=== PATIENT | female | born 1990 | race African-American/Black ===

== ENCOUNTER 2020-11-30 12:37 | Outpatient (REF) | payer OTHER, SELFPAY ==
[2020-11-30 14:44] LABS: Hematocrit 42.3 % (37-47); Hemoglobin 14.2 g/dl (12.0-16.0); Mean Corpuscular HGB Conc 33.6 g/dl (31.0-35.0); Mean Corpuscular Hemoglobin 31.7 pg (27.0-33.0); Mean Corpuscular Volume 94.4 fL (80-98); Mean Platelet Volume 10.3 fL (9.4-12.3); Platelet Count 224 X10*3/uL (160-400); Red Blood Count 4.48 X10*6/uL (4.20-5.50); White Blood Count 9.3 X10*3/uL (4.8-10.8)
[2020-11-30 15:12] LABS: Alanine Aminotransferase 16 U/L (0-31); Alkaline Phosphatase 57 U/L (39-117); Anion Gap 16 (12-20); Aspartate Amino Transferase 18 U/L (5-31); Bilirubin Direct 0.2 mg/dL (0.0-0.5); Bilirubin Total 0.6 mg/dL (0.0-1.0); Blood Urea Nitrogen 17 mg/dL (9-16); Calcium 8.7 mg/dL (8.4-10.2); Carbon Dioxide 23 mmol/L (22-29); Chloride 105 mmol/L (96-108); Cholesterol 148 mg/dL; Creatinine Clr Calc Pharmacy 100.9; Estimated Glomerular Filt Rate > 60; Glucose Random 99 mg/dL (60-115); HDL Cholesterol 63 mg/dL; LDL Cholesterol Calculated 68 mg/dl; Potassium 4.3 mmol/l (3.3-5.1); Sodium 140 mmol/L (135-145); Triglycerides 86 mg/dL
[2020-11-30 15:25] LABS: TSH reflex Free T4 1.33 mIU/mL (0.32-4.0)
[2020-12-01 09:12] LABS: BV Int Neg Control Negative (Negative); BV Int Pos Control Positive (Positive)
[2020-12-01 21:32] LABS: C. trachomatis RNA TMA NOT DETECTED (NOT DETECTED); N. gonorrhoeae RNA TMA NOT DETECTED (NOT DETECTED)
== END 2020-11-30 12:38 | disposition home or self-care (01) ==
LOC: HO.LAB 12:37
PROVIDERS: Hospitalist; Visit Provider Advanced Practice Midwife
DX: Z01.419 Encounter for gynecological examination (general) (routine) without abnormal findings (principal); N89.8 Other specified noninflammatory disorders of vagina
CPT/HCPCS: 36415; 80048; 80061; 80076; 84443; 85027; 87480; 87491; 87510; 87591; 87660

== ENCOUNTER 2021-04-28 12:15 | Outpatient (REF) | payer OTHER, SELFPAY ==
[2021-04-28 14:31] LABS: Hematocrit 40.6 % (37-47); Hemoglobin 13.3 g/dl (12.0-16.0); Mean Corpuscular HGB Conc 32.8 g/dl (31.0-35.0); Mean Corpuscular Hemoglobin 30.5 pg (27.0-33.0); Mean Corpuscular Volume 93.1 fL (80-98); Mean Platelet Volume 10.2 fL (9.4-12.3); Platelet Count 260 X10*3/uL (160-400); Red Blood Count 4.36 X10*6/uL (4.20-5.50); Red Cell Distribution Width 12.2 % (11.0-16.0); White Blood Count 9.6 X10*3/uL (4.8-10.8)
[2021-04-28 15:01] LABS: Alanine Aminotransferase 12 U/L (0-31); Albumin Level 4.1 g/dL (3.5-5.0); Alkaline Phosphatase 49 U/L (39-117); Anion Gap 13 (12-20); Aspartate Amino Transferase 16 U/L (5-31); Bilirubin Direct 0.4 mg/dL (0.0-0.5); Blood Urea Nitrogen 17 mg/dL (9-16); Calcium 9.1 mg/dL (8.4-10.2); Carbon Dioxide 25 mmol/L (22-29); Chloride 105 mmol/L (96-108); Estimated Glomerular Filt Rate > 60; Glucose Random 84 mg/dL (60-115); Potassium 4.1 mmol/L (3.3-5.1); Sodium 139 mmol/L (135-145); Total Protein 6.8 g/dL (6.5-8.0)
== END 2021-04-28 12:16 | disposition home or self-care (01) ==
LOC: HO.WFDLDS 12:15
PROVIDERS: PCP Hospitalist; Visit Provider Hospitalist
DX: Z00.00 Encounter for general adult medical examination without abnormal findings (principal); B36.0 Pityriasis versicolor
CPT/HCPCS: 36415; 80048; 80076; 85027

== ENCOUNTER 2021-08-07 14:42 | Emergency (ER) | payer OTHER, SELFPAY ==
--- NOTE | ~2021-08-07 | CT_ITS ---
EXAMINATION: CT HEAD WITHOUT CONTRAST CLINICAL INFORMATION: Headache COMPARISON: None TECHNIQUE: Contiguous axial imaging was performed from the skull base to vertex without intravenous administration of contrast. This CT examination was performed using dose optimization techniques as appropriate, variously including the following: *Automated exposure control *Adjustment of mA and/or kV according to patient size (this includes techniques or standardized protocols for targeted exams where dose is matched to indication/reason for exam; i.e. extremities or head) *Use of iterative reconstruction technique DLP: 625 mGy-cm FINDINGS: There is no evidence of acute intracranial hemorrhage or territorial infarction. No abnormal mass effect or midline shift is seen. Emndez to white matter differentiation is well preserved. No extra-axial fluid collections are identified. The ventricles are normal in size. There is no abnormal attenuation within the brain parenchyma. The osseous structures and soft tissues are normal. The mastoid air cells and visualized portions of the paranasal sinuses are well aerated. CT/CT head/brain wo con IMPRESSION: Unremarkable exam.
[2021-08-07 15:07] VITALS: BP 137/75; PULSE 79; RESP 16; TEMP 36.6; O2SAT 98; BMI 30.7
--- NOTE | 2021-08-07 15:16 | ED.HA ---
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 and shortly thereafter developed a headache with some nausea. 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 She states she notified her property management supervisor who is since reportedly corrected the problem. Unknown whether this was an actual gas leak. At this time, patient is reporting improvement in her headache and otherwise feeling well. <Gabbie Kirkland MD - Last Filed: 08/07/21 22:41> Related Data Home Medications: Home Medications Medication Instructions Recorded Confirmed acetaminophen 500 mg/15 mL oral 1,000 mg PO QID PRN 02/13/21 02/13/21 liquid ibuprofen 100 mg/5 mL oral 200 mg PO Q6H 02/13/21 02/13/21 suspension Previous Rx's Medication Instructions Recorded metronidazole 0.75 % vaginal gel 1 appful VAGINAL BEDTIME 5 Days 12/05/20 (Metrogel Vaginal) #70 g ketoconazole 2 % shampoo 1 appl TOPICAL 2XW #120 ml 07/24/21 <ADY Cassidy - Last Filed: 08/07/21 15:18> Allergies/Adverse Reactions: Allergies Allergy/AdvReac Type Severity Reaction Status Date / Time No Known Allergies Allergy Verified 05/03/21 14:27 [No Known Allergies*] <ADY Cassidy - Last Filed: 08/07/21 15:18> Review of Systems Review of Systems: Pertinent positives and negatives as stated in HPI and 10 point review of systems is otherwise negative. <Gabbie Kirkland MD - Last Filed: 08/07/21 22:41> PMFSH Past Medical History Source: nursing notes reviewed <Gabbie Kirkland MD - Last Filed: 08/07/21 22:41> Medical History: Medical History Abnormal uterine bleeding (AUB) Anemia <ADY Cassidy - Last Filed: 08/07/21 15:18> Surgical History: Surgical History History of bariatric surgery History of inguinal hernia repair History of tonsillectomy (~01/2021) <ADY Cassidy - Last Filed: 08/07/21 15:18> Family History Family History: Family History Father No problems noted. Mother Diabetes Hypertension Sister In good health <ADY Cassidy - Last Filed: 08/07/21 15:18> Social History Social History: Social History Alcohol intake: current Alcohol intake frequency: holidays/special occasions only Advance Directives: Yes Advance Directives Information Provided: Yes Advance Directives on File: No Gender identity: Female <ADY Cassidy - Last Filed: 08/07/21 15:18> Physical Exam Vital Signs: Vital Signs: Last Vital Signs Temp 97.9 F 08/07/21 15:07 Pulse 56 08/07/21 19:52 Resp 16 08/07/21 19:52 BP 117/70 08/07/21 19:52 Pulse Ox 98 08/07/21 19:52 Body Mass Index 30.7 <ADY Cassidy - Last Filed: 08/07/21 15:18> Vital Signs: Last Vital Signs Temp 97.9 F 08/07/21 15:07 Pulse 56 08/07/21 19:52 Resp 16 08/07/21 19:52 BP 117/70 08/07/21 19:52 Pulse Ox 98 08/07/21 19:52 Body Mass Index 30.7 VITAL SIGNS: Reviewed. GENERAL: Well developed, well nourished, in no acute distress. HEAD: Normocephalic/atraumatic EYES: PERRLA, EOMI OROPHARYNX: no oral lesions noted, posterior pharynx clear and non-erythematous without noted tonsillar enlargement/erythema/exudates, no discoloration of gums NECK: Supple, no adenopathy LUNGS: Normal breath sounds. No adventitious sounds or accessory muscle use. SpO2<98> CARDIOVASCULAR: Regular rate and rhythm without noted murmurs, no JVD or lower extremity edema. ABDOMEN: Soft, non-tender, non-distended with bowel sounds. MUSCULOSKELETAL: No tenderness, deformities, or effusions noted on gross inspection. EXTREMITIES: No cyanosis, clubbing or edema. SKIN: Inspection of the skin reveals no rashes, , no discoloration of nail beds NEUROLOGIC: Alert and oriented x 4. Strength and sensation to light touch were grossly intact x 4. <Gabbie Kirkland MD - Last Filed: 08/07/21 22:41> Course Course Course Narrative: 15pm - 30-year-old female presenting to the ED with complaints of a headache with associated nausea that started earlier today while she was at work after she smelled an odd smell and since then has been having a headache. She is unsure if she was possibly exposed to carbon monoxide or any other up substances. She does not believe any of her coworkers had similar symptoms although she is unsure. 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 Denies any other symptoms complaints or concerns at this time. Requesting to be tested for COVID as well. On exam patient is alert and oriented x3. Not in any acute distress. Vital signs are stable within normal limits. No focal neuro deficits noted. Patient is stable to go back to the waiting room for further evaluation treatment to the main ED. Labs, imaging ordered at this time along with COVID/RSV/flu swab. <ADY Cassidy - Last Filed: 08/07/21 15:18> Reevaluation(s) Reevaluation #1: 30-year-old female with history and clinical presentation consistent with unknown exposure to weird smell that patient felt may have been gas in nature, but this story cannot be corroborated and no other employees are suffering from similar symptoms. Review of all investigations is otherwise negative for any acute findings and awaiting carbon monoxide testing will, however low clinical suspicion for sustained gas exposure and patient will be provided with Tylenol. Review of all investigations negative for evidence to suggest acute carbon monoxide poisoning and patient's headache has completely resolved and she is otherwise discharged home in stable condition. <Gabbie Kirkland MD - Last Filed: 08/07/21 22:41> Time: 21:41 <Gabbie Kirkland MD - Last Filed: 08/07/21 22:41> MDM - Headache Lab Data Result diagrams: : 08/07/21 15:41 08/07/21 15:41 <ADY Cassidy - Last Filed: 08/07/21 15:18> Labs: Lab Results 08/07/21 08/07/21 08/07/21 Range/Units 15:41 15:41 15:41 WBC 9.1 (4.8-10.8) X10*3/uL RBC 4.45 (4.20-5.50) X10*6/uL Hgb 13.8 (12.0-16.0) g/dl Hct 41.2 (37-47) % MCV 92.6 (80-98) fL MCH 31.0 (27.0-33.0) pg MCHC 33.5 (31.0-35.0) g/dl RDW 12.3 (11.0-16.0) % Plt Count 240 (160-400) X10*3/uL MPV 9.5 (9.4-12.3) fL Immature Gran % (Auto) 0.2 (0.0-0.4) % Neut % (Auto) 60.4 (45-73) % Lymph % (Auto) 31.6 (20-40) % [place] % (Auto) 6.0 (2-11) % Eos % (Auto) 1.5 (0-4) % Baso % (Auto) 0.3 (0-2) % Lymph # (Auto) 2.9 (1.2-4.9) X10*3/uL [place] # (Auto) 0.6 (0.1-1.2) X10*3/uL Eos # (Auto) 0.1 (0.0-0.4) X10*3/uL Baso # (Auto) 0.0 (0.0-0.2) X10*3/uL Abs Immat Gran (auto) 0.02 (0.00-0.03) X10*3/uL Absolute Neuts (auto) 5.5 (2.0-8.3) X10*3/uL Absolute Nucleated RBC 0.000 (0.0-0.012) X10*3/uL Nucleated RBC % (auto) 0.0 (0.0-0.2) /100WBC ESR 11 (0-20) MM/HR PT 11.4 (9.9-13.0) SEC INR 1.0 (0.9-1.1) VBG pH (7.32-7.43) VBG pCO2 mmHg VBG pO2 mmHg VBG HCO3 (22-26) mmol/L VBG O2 Saturation % VBG Base Excess mmol/L Carboxyhemoglobin % % Sodium (135-145) mmol/L Potassium (3.3-5.1) mmol/L Chloride (96-108) mmol/L Carbon Dioxide (22-29) mmol/L Anion Gap (12-20) BUN (9-16) mg/dL Creatinine (0.5-1.4) mg/dL Estim Creat Clear Calc Estimated GFR Random Glucose (60-115) mg/dL Calcium (8.4-10.2) mg/dL Magnesium (1.6-2.6) mg/dL Total Bilirubin (0.0-1.0) mg/dL AST (5-31) U/L ALT (0-31) U/L Alkaline Phosphatase (39-117) U/L C-Reactive Protein (< or = 0.50) mg/dL Total Protein (6.5-8.0) g/dL Albumin (3.5-5.0) g/dL Coronavirus (PCR) (Negative) Influenza Type A (PCR) (Negative) Influenza Type B (PCR) (Negative) RSV RNA Qual (PCR) (Negative) 08/07/21 08/07/21 08/07/21 Range/Units 15:41 21:45 21:51 WBC (4.8-10.8) X10*3/uL RBC (4.20-5.50) X10*6/uL Hgb (12.0-16.0) g/dl Hct (37-47) % MCV (80-98) fL MCH (27.0-33.0) pg MCHC (31.0-35.0) g/dl RDW (11.0-16.0) % Plt Count (160-400) X10*3/uL MPV (9.4-12.3) fL Immature Gran % (Auto) (0.0-0.4) % Neut % (Auto) (45-73) % Lymph % (Auto) (20-40) % [place] % (Auto) (2-11) % Eos % (Auto) (0-4) % Baso % (Auto) (0-2) % Lymph # (Auto) (1.2-4.9) X10*3/uL [place] # (Auto) (0.1-1.2) X10*3/uL Eos # (Auto) (0.0-0.4) X10*3/uL Baso # (Auto) (0.0-0.2) X10*3/uL Abs Immat Gran (auto) (0.00-0.03) X10*3/uL Absolute Neuts (auto) (2.0-8.3) X10*3/uL Absolute Nucleated RBC (0.0-0.012) X10*3/uL Nucleated RBC % (auto) (0.0-0.2) /100WBC ESR (0-20) MM/HR PT (9.9-13.0) SEC INR (0.9-1.1) VBG pH 7.34 (7.32-7.43) VBG pCO2 46 mmHg VBG pO2 35 mmHg VBG HCO3 25 (22-26) mmol/L VBG O2 Saturation 46.0 % VBG Base Excess -0.3 mmol/L Carboxyhemoglobin % % Sodium 139 (135-145) mmol/L Potassium 4.1 (3.3-5.1) mmol/L Chloride 105 (96-108) mmol/L Carbon Dioxide 27 (22-29) mmol/L Anion Gap 11 L (12-20) BUN 18 H (9-16) mg/dL Creatinine 0.86 (0.5-1.4) mg/dL Estim Creat Clear Calc 92.2 Estimated GFR > 60 Random Glucose 107 (60-115) mg/dL Calcium 9.7 D (8.4-10.2) mg/dL Magnesium 2.0 (1.6-2.6) mg/dL Total Bilirubin 0.6 (0.0-1.0) mg/dL AST 15 (5-31) U/L ALT 12 (0-31) U/L Alkaline Phosphatase 53 (39-117) U/L C-Reactive Protein 0.02 (< or = 0.50) mg/dL Total Protein 7.4 (6.5-8.0) g/dL Albumin 4.4 (3.5-5.0) g/dL Coronavirus (PCR) NEGATIVE (Negative) Influenza Type A (PCR) NEGATIVE (Negative) Influenza Type B (PCR) NEGATIVE (Negative) RSV RNA Qual (PCR) NEGATIVE (Negative) 08/07/21 Range/Units 22:31 WBC (4.8-10.8) X10*3/uL RBC (4.20-5.50) X10*6/uL Hgb (12.0-16.0) g/dl Hct (37-47) % MCV (80-98) fL MCH (27.0-33.0) pg MCHC (31.0-35.0) g/dl RDW (11.0-16.0) % Plt Count (160-400) X10*3/uL MPV (9.4-12.3) fL Immature Gran % (Auto) (0.0-0.4) % Neut % (Auto) (45-73) % Lymph % (Auto) (20-40) % [place] % (Auto) (2-11) % Eos % (Auto) (0-4) % Baso % (Auto) (0-2) % Lymph # (Auto) (1.2-4.9) X10*3/uL [place] # (Auto) (0.1-1.2) X10*3/uL Eos # (Auto) (0.0-0.4) X10*3/uL Baso # (Auto) (0.0-0.2) X10*3/uL Abs Immat Gran (auto) (0.00-0.03) X10*3/uL Absolute Neuts (auto) (2.0-8.3) X10*3/uL Absolute Nucleated RBC (0.0-0.012) X10*3/uL Nucleated RBC % (auto) (0.0-0.2) /100WBC ESR (0-20) MM/HR PT (9.9-13.0) SEC INR (0.9-1.1) VBG pH (7.32-7.43) VBG pCO2 mmHg VBG pO2 mmHg VBG HCO3 (22-26) mmol/L VBG O2 Saturation % VBG Base Excess mmol/L Carboxyhemoglobin % 1.1 % Sodium (135-145) mmol/L Potassium (3.3-5.1) mmol/L Chloride (96-108) mmol/L Carbon Dioxide (22-29) mmol/L Anion Gap (12-20) BUN (9-16) mg/dL Creatinine (0.5-1.4) mg/dL Estim Creat Clear Calc Estimated GFR Random Glucose (60-115) mg/dL Calcium (8.4-10.2) mg/dL Magnesium (1.6-2.6) mg/dL Total Bilirubin (0.0-1.0) mg/dL AST (5-31) U/L ALT (0-31) U/L Alkaline Phosphatase (39-117) U/L C-Reactive Protein (< or = 0.50) mg/dL Total Protein (6.5-8.0) g/dL Albumin (3.5-5.0) g/dL Coronavirus (PCR) (Negative) Influenza Type A (PCR) (Negative) Influenza Type B (PCR) (Negative) RSV RNA Qual (PCR) (Negative) <ADY Cassidy - Last Filed: 08/07/21 15:18> Lab Results 08/07/21 08/07/21 08/07/21 Range/Units 15:41 15:41 15:41 WBC 9.1 (4.8-10.8) X10*3/uL RBC 4.45 (4.20-5.50) X10*6/uL Hgb 13.8 (12.0-16.0) g/dl Hct 41.2 (37-47) % MCV 92.6 (80-98) fL MCH 31.0 (27.0-33.0) pg MCHC 33.5 (31.0-35.0) g/dl RDW 12.3 (11.0-16.0) % Plt Count 240 (160-400) X10*3/uL MPV 9.5 (9.4-12.3) fL Immature Gran % (Auto) 0.2 (0.0-0.4) % Neut % (Auto) 60.4 (45-73) % Lymph % (Auto) 31.6 (20-40) % [place] % (Auto) 6.0 (2-11) % Eos % (Auto) 1.5 (0-4) % Baso % (Auto) 0.3 (0-2) % Lymph # (Auto) 2.9 (1.2-4.9) X10*3/uL [place] # (Auto) 0.6 (0.1-1.2) X10*3/uL Eos # (Auto) 0.1 (0.0-0.4) X10*3/uL Baso # (Auto) 0.0 (0.0-0.2) X10*3/uL Abs Immat Gran (auto) 0.02 (0.00-0.03) X10*3/uL Absolute Neuts (auto) 5.5 (2.0-8.3) X10*3/uL Absolute Nucleated RBC 0.000 (0.0-0.012) X10*3/uL Nucleated RBC % (auto) 0.0 (0.0-0.2) /100WBC ESR 11 (0-20) MM/HR PT 11.4 (9.9-13.0) SEC INR 1.0 (0.9-1.1) VBG pH (7.32-7.43) VBG pCO2 mmHg VBG pO2 mmHg VBG HCO3 (22-26) mmol/L VBG O2 Saturation % VBG Base Excess mmol/L Carboxyhemoglobin % % Sodium (135-145) mmol/L Potassium (3.3-5.1) mmol/L Chloride (96-108) mmol/L Carbon Dioxide (22-29) mmol/L Anion Gap (12-20) BUN (9-16) mg/dL Creatinine (0.5-1.4) mg/dL Estim Creat Clear Calc Estimated GFR Random Glucose (60-115) mg/dL Calcium (8.4-10.2) mg/dL Magnesium (1.6-2.6) mg/dL Total Bilirubin (0.0-1.0) mg/dL AST (5-31) U/L ALT (0-31) U/L Alkaline Phosphatase (39-117) U/L C-Reactive Protein (< or = 0.50) mg/dL Total Protein (6.5-8.0) g/dL Albumin (3.5-5.0) g/dL Coronavirus (PCR) (Negative) Influenza Type A (PCR) (Negative) Influenza Type B (PCR) (Negative) RSV RNA Qual (PCR) (Negative) 08/07/21 08/07/21 08/07/21 Range/Units 15:41 21:45 21:51 WBC (4.8-10.8) X10*3/uL RBC (4.20-5.50) X10*6/uL Hgb (12.0-16.0) g/dl Hct (37-47) % MCV (80-98) fL MCH (27.0-33.0) pg MCHC (31.0-35.0) g/dl RDW (11.0-16.0) % Plt Count (160-400) X10*3/uL MPV (9.4-12.3) fL Immature Gran % (Auto) (0.0-0.4) % Neut % (Auto) (45-73) % Lymph % (Auto) (20-40) % [place] % (Auto) (2-11) % Eos % (Auto) (0-4) % Baso % (Auto) (0-2) % Lymph # (Auto) (1.2-4.9) X10*3/uL [place] # (Auto) (0.1-1.2) X10*3/uL Eos # (Auto) (0.0-0.4) X10*3/uL Baso # (Auto) (0.0-0.2) X10*3/uL Abs Immat Gran (auto) (0.00-0.03) X10*3/uL Absolute Neuts (auto) (2.0-8.3) X10*3/uL Absolute Nucleated RBC (0.0-0.012) X10*3/uL Nucleated RBC % (auto) (0.0-0.2) /100WBC ESR (0-20) MM/HR PT (9.9-13.0) SEC INR (0.9-1.1) VBG pH 7.34 (7.32-7.43) VBG pCO2 46 mmHg VBG pO2 35 mmHg VBG HCO3 25 (22-26) mmol/L VBG O2 Saturation 46.0 % VBG Base Excess -0.3 mmol/L Carboxyhemoglobin % % Sodium 139 (135-145) mmol/L Potassium 4.1 (3.3-5.1) mmol/L Chloride 105 (96-108) mmol/L Carbon Dioxide 27 (22-29) mmol/L Anion Gap 11 L (12-20) BUN 18 H (9-16) mg/dL Creatinine 0.86 (0.5-1.4) mg/dL Estim Creat Clear Calc 92.2 Estimated GFR > 60 Random Glucose 107 (60-115) mg/dL Calcium 9.7 D (8.4-10.2) mg/dL Magnesium 2.0 (1.6-2.6) mg/dL Total Bilirubin 0.6 (0.0-1.0) mg/dL AST 15 (5-31) U/L ALT 12 (0-31) U/L Alkaline Phosphatase 53 (39-117) U/L C-Reactive Protein 0.02 (< or = 0.50) mg/dL Total Protein 7.4 (6.5-8.0) g/dL Albumin 4.4 (3.5-5.0) g/dL Coronavirus (PCR) NEGATIVE (Negative) Influenza Type A (PCR) NEGATIVE (Negative) Influenza Type B (PCR) NEGATIVE (Negative) RSV RNA Qual (PCR) NEGATIVE (Negative) 08/07/21 Range/Units 22:31 WBC (4.8-10.8) X10*3/uL RBC (4.20-5.50) X10*6/uL Hgb (12.0-16.0) g/dl Hct (37-47) % MCV (80-98) fL MCH (27.0-33.0) pg MCHC (31.0-35.0) g/dl RDW (11.0-16.0) % Plt Count (160-400) X10*3/uL MPV (9.4-12.3) fL Immature Gran % (Auto) (0.0-0.4) % Neut % (Auto) (45-73) % Lymph % (Auto) (20-40) % [place] % (Auto) (2-11) % Eos % (Auto) (0-4) % Baso % (Auto) (0-2) % Lymph # (Auto) (1.2-4.9) X10*3/uL [place] # (Auto) (0.1-1.2) X10*3/uL Eos # (Auto) (0.0-0.4) X10*3/uL Baso # (Auto) (0.0-0.2) X10*3/uL Abs Immat Gran (auto) (0.00-0.03) X10*3/uL Absolute Neuts (auto) (2.0-8.3) X10*3/uL Absolute Nucleated RBC (0.0-0.012) X10*3/uL Nucleated RBC % (auto) (0.0-0.2) /100WBC ESR (0-20) MM/HR PT (9.9-13.0) SEC INR (0.9-1.1) VBG pH (7.32-7.43) VBG pCO2 mmHg VBG pO2 mmHg VBG HCO3 (22-26) mmol/L VBG O2 Saturation % VBG Base Excess mmol/L Carboxyhemoglobin % 1.1 % Sodium (135-145) mmol/L Potassium (3.3-5.1) mmol/L Chloride (96-108) mmol/L Carbon Dioxide (22-29) mmol/L Anion Gap (12-20) BUN (9-16) mg/dL Creatinine (0.5-1.4) mg/dL Estim Creat Clear Calc Estimated GFR Random Glucose (60-115) mg/dL Calcium (8.4-10.2) mg/dL Magnesium (1.6-2.6) mg/dL Total Bilirubin (0.0-1.0) mg/dL AST (5-31) U/L ALT (0-31) U/L Alkaline Phosphatase (39-117) U/L C-Reactive Protein (< or = 0.50) mg/dL Total Protein (6.5-8.0) g/dL Albumin (3.5-5.0) g/dL Coronavirus (PCR) (Negative) Influenza Type A (PCR) (Negative) Influenza Type B (PCR) (Negative) RSV RNA Qual (PCR) (Negative) <Gabbie Kirkland MD - Last Filed: 08/07/21 22:41> Discharge Plan Discharge Clinical Impression: Headache, Nausea, History of exposure to noxious chemical <ADY Cassidy - Last Filed: 08/07/21 15:18> Patient Disposition: Home, Self-Care <ADY Cassidy - Last Filed: 08/07/21 15:18> Instructions: General Headache (ED) <ADY Cassidy - Last Filed: 08/07/21 15:18> Additional Instructions: 1. Resume all home medications as prescribed. 2. Follow-up with your primary care provider in the morning for re-evaluation further outpatient management. Return to the ER for acute worsening of symptoms. <ADY Cassidy - Last Filed: 08/07/21 15:18> Prescriptions: No Action metronidazole [Metrogel Vaginal] 0.75 % gel 1 appful vaginal BEDTIME 5 Days Qty: 70 RF: 0 ketoconazole 2 % shampoo 1 appl topical 2XW Qty: 120 RF: 0 ibuprofen 100 mg/5 mL suspension 200 mg PO Q6H RF: 0 acetaminophen 500 mg/15 mL liquid 1,000 mg PO QID PRNRF: 0 <ADY Cassidy - Last Filed: 08/07/21 15:18> Referrals: Benita Lindsay NP [Primary Care Provider] - 2 days <ADY Cassidy - Last Filed: 08/07/21 15:18>
[2021-08-07 15:47] LABS: MANUAL DIFF FLAG NO
[2021-08-07 15:48] LABS: Basophils Percent Auto 0.3 % (0-2); Eosinophils Absolute Auto 0.1 X10*3/uL (0.0-0.4); Eosinophils Percent Auto 1.5 % (0-4); Hematocrit 41.2 % (37-47); Hemoglobin 13.8 g/dl (12.0-16.0); Imm Gran Abs Auto 0.02 X10*3/uL (0.00-0.03); Imm Gran Pct Auto 0.2 % (0.0-0.4); Lymphocytes Absolute Auto 2.9 X10*3/uL (1.2-4.9); Lymphocytes Percent Auto 31.6 % (20-40); Mean Corpuscular HGB Conc 33.5 g/dl (31.0-35.0); Mean Corpuscular Volume 92.6 fL (80-98); Mean Platelet Volume 9.5 fL (9.4-12.3); Monocytes Absolute Auto 0.6 X10*3/uL (0.1-1.2); Neutrophils Absolute Auto 5.5 X10*3/uL (2.0-8.3); Neutrophils Percent Auto 60.4 % (45-73); Platelet Count 240 X10*3/uL (160-400); Red Blood Count 4.45 X10*6/uL (4.20-5.50); Red Cell Distribution Width 12.3 % (11.0-16.0); White Blood Count 9.1 X10*3/uL (4.8-10.8)
[2021-08-07 15:53] LABS: Prothrombin Time 11.4 SEC (9.9-13.0)
[2021-08-07 16:07] LABS: Alanine Aminotransferase 12 U/L (0-31); Albumin Level 4.4 g/dL (3.5-5.0); Alkaline Phosphatase 53 U/L (39-117); Anion Gap 11 (12-20); Aspartate Amino Transferase 15 U/L (5-31); Bilirubin Total 0.6 mg/dL (0.0-1.0); Blood Urea Nitrogen 18 mg/dL (9-16); C Reactive Protein 0.02 mg/dL (< or = 0.50); Calcium 9.7 mg/dL (8.4-10.2); Carbon Dioxide 27 mmol/L (22-29); Chloride 105 mmol/L (96-108); Creatinine Clr Calc Pharmacy 92.2; Estimated Glomerular Filt Rate > 60; Glucose Random 107 mg/dL (60-115); Potassium 4.1 mmol/L (3.3-5.1); Sodium 139 mmol/L (135-145); Total Protein 7.4 g/dL (6.5-8.0)
[2021-08-07 17:53] LABS: Erythrocyte Sedimentation Rate 11 MM/HR (0-20)
[2021-08-07 19:52] VITALS: BP 117/70; PULSE 56; RESP 16; O2SAT 98
[2021-08-07 21:49] LABS: Carbon Monoxide Refer to POC result
[2021-08-07 21:50] LABS: VBG Base Excess -0.3 mmol/L; VBG HCO3 25 mmol/L (22-26); VBG pCO2 46 mmHg; VBG pH 7.34 (7.32-7.43); VBG pO2 35 mmHg
[2021-08-07] MEDS: Acetaminophen 325 MG TABLET 975 MG PO (22:18)
[2021-08-07 22:31] LABS: Influenza A PCR NEGATIVE (Negative); Influenza B PCR NEGATIVE (Negative); Resp Syncy Virus RNA Qual PCR NEGATIVE (Negative); SARS COV2 PCR INHOUSE NEGATIVE (Negative)
[2021-08-07 22:34] LABS: Carbon Monoxide Refer to POC result
[2021-08-07 22:35] LABS: Carbon Monoxide POC 1.1 %
[2021-08-07 23:01] VITALS: BP 122/48; PULSE 54; RESP 18; O2SAT 100
== END 2021-08-07 23:03 | disposition home or self-care (01) ==
PROVIDERS: Physician Assistant Medical; Emergency Provider Student in an Organized Health Care Education/Training Program; PCP Hospitalist
DX: R51.9 Headache, unspecified (principal); Z79.899 Other long term (current) drug therapy; Z20.822 Contact with and (suspected) exposure to COVID-19
CPT/HCPCS: 0241U; 36415; 70450; 80053; 82803; 83735; 85025; 85610; 85652; 86140; 99284

== ENCOUNTER 2021-11-30 10:09 | Outpatient (REF) | payer OTHER, SELFPAY ==
[2021-11-30 13:55] LABS: CT PCR NOT DETECTED (Not Detect.); NG PCR NOT DETECTED (Not Detect.)
[2021-12-01 08:50] LABS: BV Int Neg Control Negative (Negative); BV Int Pos Control Positive (Positive)
[2021-12-05 16:01] LABS: HPV mRNA E6/E7 rflx Not Detected (Not Detected)
== END 2021-11-30 10:10 | disposition home or self-care (01) ==
LOC: HO.LAB 10:09
PROVIDERS: PCP Hospitalist; Visit Provider Advanced Practice Midwife
DX: Z01.419 Encounter for gynecological examination (general) (routine) without abnormal findings (principal); N89.8 Other specified noninflammatory disorders of vagina; E66.9 Obesity, unspecified; Z20.2 Contact with and (suspected) exposure to infections with a predominantly sexual mode of transmission; Z87.891 Personal history of nicotine dependence
CPT/HCPCS: 87480; 87491; 87510; 87591; 87624; 87660; 88142

== ENCOUNTER 2022-02-02 14:11 | Outpatient (REF) | payer OTHER, SELFPAY ==
[2022-02-03 13:11] LABS: BV Int Neg Control Negative (Negative); BV Int Pos Control Positive (Positive)
[2022-02-03 14:32] LABS: CT PCR NOT DETECTED (Not Detect.); NG PCR NOT DETECTED (Not Detect.)
== END 2022-02-02 14:12 | disposition home or self-care (01) ==
LOC: HO.LAB 14:11
PROVIDERS: PCP Hospitalist; Visit Provider Advanced Practice Midwife
DX: N89.8 Other specified noninflammatory disorders of vagina (principal)
CPT/HCPCS: 87480; 87491; 87510; 87591; 87660; 99212

== ENCOUNTER 2022-06-07 17:28 | Emergency (ER) | payer OTHER, SELFPAY ==
[2022-06-07 18:44] VITALS: BP 106/63; PULSE 75; RESP 18; TEMP 36.9; O2SAT 99; BMI 33.8
[2022-06-07 19:03] LABS: Appearance Urine CLOUDY; Color Urine YELLOW; Glucose Urine UA NEG (NEG); Leukocyte Esterase Urine 2+ (NEG); Nitrite Urine NEG (NEG); PH 5.5 (5.0-8.0); UACC Culture Trigger YES; Urine Blood 3+ (NEG); Urine Ketones NEG (NEG); Urine Protein 2+ MG/DL (NEG-TRACE)
[2022-06-07 19:09] LABS: Bacteria Urine 3+ /LPF; Squamous Epithelial Cell Urine 1+ /LPF; WBC Urine 30-49 /HPF (0-4)
[2022-06-07 19:27] LABS: Hematocrit 39.1 % (37.0-47.0); Hemoglobin 13.2 g/dl (12.0-16.0); Mean Corpuscular HGB Conc 33.8 g/dl (31.0-35.0); Mean Corpuscular Hemoglobin 31.1 pg (27.0-33.0); Mean Corpuscular Volume 92.2 fL (80.0-98.0); Mean Platelet Volume 9.2 fL (9.4-12.3); Platelet Count 238 X10*3/uL (160-400); Red Blood Count 4.24 X10*6/uL (4.20-5.50); Red Cell Distribution Width 12.5 % (11.0-16.0); White Blood Count 10.6 X10*3/uL (4.8-10.8)
[2022-06-07 19:39] LABS: Anion Gap 13 (12-20); Blood Urea Nitrogen 13 mg/dL (9-16); Calcium 8.6 mg/dL (8.4-10.2); Carbon Dioxide 25 mmol/L (22-29); Chloride 105 mmol/L (96-108); Creatinine Clr Calc Pharmacy 113.1; Estimated Glomerular Filt Rate > 60; Glucose Random 87 mg/dL (60-115); Potassium 4.1 mmol/L (3.3-5.1); Sodium 139 mmol/L (135-145)
[2022-06-07 19:46] LABS: COVID-19 Test Negative (Negative); IDNOW Serial# 16C4AD1C; Influenza A Negative (Negative); Influenza B2 Negative (Negative)
--- NOTE | 2022-06-07 21:51 | ED.FEMALEGU ---
HPI - Female Genitourinary General Chief complaint: Urogenital-Female Stated complaint: sob,body aches, blood in urine Time Seen by Provider: 06/07/22 19:49 Source: patient Mode of arrival: ambulatory History of Present Illness HPI Narrative: 31-year-old female who presents with complaints of fatigue but also experiencing black stools although she does take iron supplementation and denies any associated dizziness but does report some shortness of breath. In addition she is complaining of some lower back discomfort but otherwise denies any fever, chills, nausea, vomiting, diarrhea. Related Data Home Medications Medication Instructions Recorded Confirmed acetaminophen 500 mg/15 mL oral 1,000 mg PO QID PRN 02/13/21 02/13/21 liquid ibuprofen 100 mg/5 mL oral 200 mg PO Q6H 02/13/21 02/13/21 suspension Previous Rx's Medication Instructions Recorded fluconazole 150 mg tablet 150 mg PO ONCE PRN personal 1 day 02/02/22 (Diflucan) #1 tab nitrofurantoin 100 mg PO Q12H 5 days #10 caps 06/07/22 monohydrate/macrocrystals 100 mg capsule (Macrobid) Allergies Allergy/AdvReac Type Severity Reaction Status Date / Time No Known Allergies Allergy Verified 02/02/22 14:29 [No Known Allergies*] Review of Systems Review of Systems: Pertinent positives and negatives as stated in HPI and 10 point review of systems is otherwise negative. [facility] Past Medical History Source: nursing notes reviewed Medical History Abnormal uterine bleeding (AUB) Anemia Obesity Surgical History History of bariatric surgery History of inguinal hernia repair History of tonsillectomy (~01/2021) Family History Family History Father No problems noted. Mother Diabetes Hypertension Sister In good health Social History Social History Housing: Apartment Alcohol intake: current Alcohol intake frequency: holidays/special occasions only Patient Tobacco Use Status: Former Tobacco user Tobacco use type: Cigarette e-Cigarette/Vaping Use: Never Used Second Hand Smoke Exposure: No service: No Current occupational status: employed Gender identity: Female Physical Exam Vital Signs: Vital Signs: Last Vital Signs Temp 98.5 F 06/07/22 18:44 Pulse 75 06/07/22 18:44 Resp 18 06/07/22 18:44 BP 106/63 06/07/22 18:44 Pulse Ox 99 06/07/22 18:44 O2 Del Method 06/07/22 18:44 BMI result Body Mass Index 33.8 VITAL SIGNS: Reviewed. GENERAL: Well developed, well nourished, in no acute distress. HEAD: Normocephalic/atraumatic EYES: PERRLA, EOMI, no conjunctival pallor EARS: Ext canals without abnormality OROPHARYNX: no oral lesions noted, posterior pharynx clear LUNGS: Normal breath sounds. No adventitious sounds or accessory muscle use. SpO2<99> CARDIOVASCULAR: Regular rate and rhythm without noted murmurs ABDOMEN: Soft, non-tender, non-distended with bowel sounds. SKIN: Inspection of the skin reveals no rashes or pallor NEUROLOGIC: Alert and oriented x 4. Strength and sensation to light touch were grossly intact x 4. Course Course Course Narrative: 31-year-old female with history and clinical presentation at for review of all investigations consistent with UTI. She is PERC negative otherwise, and appears well. Dark stool is likely secondary to iron supplementation as patient is not anemic, tachycardic, or hypotensive and has easy unlabored breathing and is oxygenating well on room air. Patient is currently on her menstrual period. MDM - Female Genitourinary Lab Data Result diagrams: 06/07/22 19:15 06/07/22 19:15 Labs: Lab Results 06/07/22 06/07/22 06/07/22 Range/Units 18:55 19:15 19:15 WBC 10.6 (4.8-10.8) X10*3/uL RBC 4.24 (4.20-5.50) X10*6/uL Hgb 13.2 (12.0-16.0) g/dl Hct 39.1 (37.0-47.0) % MCV 92.2 (80.0-98.0) fL MCH 31.1 (27.0-33.0) pg MCHC 33.8 (31.0-35.0) g/dl RDW 12.5 (11.0-16.0) % Plt Count 238 (160-400) X10*3/uL MPV 9.2 L (9.4-12.3) fL Absolute Nucleated RBC 0.000 (0.0-0.012) X10*3/uL Nucleated RBC % (auto) 0.0 (0.0-0.2) /100WBC Sodium 139 (135-145) mmol/L Potassium 4.1 (3.3-5.1) mmol/L Chloride 105 (96-108) mmol/L Carbon Dioxide 25 (22-29) mmol/L Anion Gap 13 (12-20) BUN 13 (9-16) mg/dL Creatinine 0.73 (0.5-1.4) mg/dL Estim Creat Clear Calc 113.1 Estimated GFR > 60 Random Glucose 87 (60-115) mg/dL Calcium 8.6 D (8.4-10.2) mg/dL Urine Color YELLOW Urine Appearance CLOUDY Urine pH 5.5 (5.0-8.0) Ur Specific [place] 1.020 (1.005-1.025) Urine Protein 2+ H (NEG-TRACE) MG/DL Urine Glucose (UA) NEG (NEG) MG/DL Urine Ketones NEG (NEG) MG/DL Urine Blood 3+ H (NEG) Urine Nitrite NEG (NEG) Ur Leukocyte Esterase 2+ H (NEG) Urine RBC 15-29 H (0) /HPF Urine WBC 30-49 H (0-4) /HPF Ur Squamous Epith Cells 1+ /LPF Urine Bacteria 3+ /LPF COVID-19 (RILEY) (Negative) COVID-19 Clin Com Influenza Type A (ISHMAEL) (Negative) Influenza Type B (ISHMAEL) (Negative) Influenza A & B Note 06/07/22 06/07/22 Range/Units 19:15 19:15 WBC (4.8-10.8) X10*3/uL RBC (4.20-5.50) X10*6/uL Hgb (12.0-16.0) g/dl Hct (37.0-47.0) % MCV (80.0-98.0) fL MCH (27.0-33.0) pg MCHC (31.0-35.0) g/dl RDW (11.0-16.0) % Plt Count (160-400) X10*3/uL MPV (9.4-12.3) fL Absolute Nucleated RBC (0.0-0.012) X10*3/uL Nucleated RBC % (auto) (0.0-0.2) /100WBC Sodium (135-145) mmol/L Potassium (3.3-5.1) mmol/L Chloride (96-108) mmol/L Carbon Dioxide (22-29) mmol/L Anion Gap (12-20) BUN (9-16) mg/dL Creatinine (0.5-1.4) mg/dL Estim Creat Clear Calc Estimated GFR Random Glucose (60-115) mg/dL Calcium (8.4-10.2) mg/dL Urine Color Urine Appearance Urine pH (5.0-8.0) Ur Specific [place] (1.005-1.025) Urine Protein (NEG-TRACE) MG/DL Urine Glucose (UA) (NEG) MG/DL Urine Ketones (NEG) MG/DL Urine Blood (NEG) Urine Nitrite (NEG) Ur Leukocyte Esterase (NEG) Urine RBC (0) /HPF Urine WBC (0-4) /HPF Ur Squamous Epith Cells /LPF Urine Bacteria /LPF COVID-19 (RILEY) Negative (Negative) COVID-19 Clin Com See Note Influenza Type A (ISHMAEL) Negative (Negative) Influenza Type B (ISHMAEL) Negative (Negative) Influenza A & B Note See Note Discharge Plan Discharge Clinical Impression: Fatigue, UTI (urinary tract infection) Patient Disposition: Home, Self-Care Instructions: Urinary Tract Infection in Women (ED), Fatigue (ED) Additional Instructions: 1. Resume all home medications as prescribed. 2. Complete the entire course of antibiotics. 3. Follow-up with your primary care provider as scheduled. Ask your doctor to check on the urine culture to make sure that the antibiotic you are on is appropriate. Return to the ER for worsening symptoms. Prescriptions: New nitrofurantoin monohyd/m-cryst [Macrobid] 100 mg capsule 100 mg PO Q12H 5 Days Qty: 10 0RF Rx Instructions: must administer with a meal/food No Action ibuprofen 100 mg/5 mL suspension 200 mg PO Q6H acetaminophen 500 mg/15 mL liquid 1,000 mg PO QID PRN fluconazole [Diflucan] 150 mg tablet 150 mg PO ONCE PRN (Reason: personal) 1 Days Qty: 1 0RF
[2022-06-07] MEDS: Nitrofurantoin Monohyd/M-Cryst 100 MG CAPSULE PO (22:33)
== END 2022-06-07 22:38 | disposition home or self-care (01) ==
PROVIDERS: Emergency Provider Student in an Organized Health Care Education/Training Program; PCP Hospitalist
DX: N39.0 Urinary tract infection, site not specified (principal); R06.02 Shortness of breath; M79.10 Myalgia, unspecified site; R31.9 Hematuria, unspecified; Z20.822 Contact with and (suspected) exposure to COVID-19; Z79.899 Other long term (current) drug therapy; Z87.891 Personal history of nicotine dependence
CPT/HCPCS: 80048; 81001; 81003; 85027; 87086; 87088; 87186; 87502; 87635; 99282; 99283

== ENCOUNTER 2023-08-13 09:53 | Outpatient (REF) | payer OTHER, SELFPAY ==
[2023-08-13 19:16] LABS: CT PCR NOT DETECTED (Not Detect.); NG PCR NOT DETECTED (Not Detect.)
[2023-08-14 15:38] LABS: BV Int Neg Control Negative (Negative); BV Int Pos Control Positive (Positive)
== END 2023-08-13 09:54 | disposition home or self-care (01) ==
LOC: HO.LAB 09:53
PROVIDERS: Visit Provider Advanced Practice Midwife
DX: Z01.419 Encounter for gynecological examination (general) (routine) without abnormal findings (principal); Z20.2 Contact with and (suspected) exposure to infections with a predominantly sexual mode of transmission
CPT/HCPCS: 0353U; 87480; 87510; 87660

== ENCOUNTER 2023-08-13 09:53 | Outpatient (AMB) | payer OTHER, SELFPAY ==
--- NOTE | 2023-08-13 10:08 | MHC.OFFVIS ---
Intake Vital Signs 08/13/23 10:09 Height 5 ft 2 in Weight 181 lb BMI 33.1 BP 108/64 Intake Visit Reasons: Annual/DO NOT RS Intake Note: The patient agreed to use of a medical laboratory technical officer during this encounter. Scribed for JUAN Lilly by Anette Isaac, medical laboratory technical officer, on 08/13/2023 at 10:25 am EST. Pomologist: Pomologist Present (Nikky) Allergies No Known Allergies [No Known Allergies*] Allergy (Verified 08/13/23 10:08) Is last menstrual period known: Yes Last menstrual period: 07/22/23 HPI HPI Comments History of Present Illness Details She is a premenopausal woman presenting for annual exam. 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 She admits to eating healthy and tries to stay active with exercise. Currently not sexually active. Interested in fertility testing; has been when she was 19. Regular monthly periods. Denies vaginal itching and irritation. STD screening and blood work per pt request. Denies family hx of breast, colon and ovarian cancer. Last pap smear 11/30/21. [facility]LY [facility], [facility] Medical History (Updated 08/13/23 @ 10:59 by Anette Isaac) Obesity Anemia Surgical History History of tonsillectomy (~01/2021) History of inguinal hernia repair History of bariatric surgery Family History Father No problems noted. Mother Diabetes Hypertension Sister In good health Social History Housing: Apartment Alcohol intake: current Alcohol intake frequency: holidays/special occasions only Patient Tobacco Use Status: Former Tobacco user Tobacco use type: Cigarette e-Cigarette/Vaping Use: Never Used Second Hand Smoke Exposure: No service: No Current occupational status: employed Gender identity: Female Female Reproductive History Menstrual Age of Menarche: 12 Duration of menses: 3-5 days Date of last menstrual period: 07/22/23 control method: none Total pregnancies: 1 Ab induced: 1 Date of last pap smear: 11/30/21 (neg pap and hpv) Physical Exam Vital Signs: Last Vital Signs BP 108/64 08/13/23 10:09 BMI result Body Mass Index 33.1 Const General: cooperative, healthy appearing, no acute distress, well developed and alert Orientation/consciousness: patient oriented x3 HEENT Head: Yes normal to inspection Eyes General: appearance normal, both eyes and all related structures Neck Neck: Yes normal visual inspection Thyroid: Thyroid normal Chest Chest palpation & inspection: normal inspection of the chest Breast/axilla inspection: normal inspection of the breasts (no puckering, dimpling, peau de orange, retraction, discharge, masses) Breast/axilla palpation: normal palpation of the breasts Resp Effort & Inspection: normal respiratory effort GI Other: surgical scarring Inspection: Yes normal to inspection Palpation (GI): Soft to palpation (to palpation) Rectal Exam - Female: deferred General: Yes bladder normal to inspection External Female Exam: normal external appearance and normal appearance of the urethra Speculum Exam - Vagina: normal appearance of the vagina, normal palpation and normal vaginal discharge Speculum Exam - Cervix: normal appearance of the cervix and normal palpation Bimanual exam- vagina & uterus: normal palpation and normal palpation Bimanual Exam- Adnexa, other: normal adnexae and no masses Skin General skin exam: no rashes or lesions noted Neuro General: patient oriented x3 Cognition (Neuro): normal cognition Extrem General: Yes normal to inspection Psych Attitude: cooperative Thought process: Normal thought process present Assessment & Plan Assessment & Plan (1) Encounter for well woman exam: Code(s): Z01.419 - Encounter for gynecological examination (general) (routine) without abnormal findings Plan: Discussed: Current recommendations for pap smears per ASCCP guidelines. Breast awareness and periodic self breast exams. Maintaining a healthy lifestyle including a well balanced diet and routine exercise. Contact insurance regarding fertility testing coverage, call if desires a referral to [facility] if covered. Monitor menses. Encouraged patient to sign up for patient portal. All of her questions and concerns were addressed to the best of my ability. RTO in one year for AG. (2) Potential exposure to STD: Code(s): Z20.2 - Contact with and (suspected) exposure to infections with a predominantly sexual mode of transmission Plan: BV testing and GC/CT panel today. STD blood work ordered. Await results and treat accordingly. Encouraged to use condoms for STD and prevention if become sexually active. Orders: Orders Hepatitis C Antibody Today Z20.2 - Contact with and (suspected) exposure to infections with a predominantly sexual mode of transmission Bacterial Vaginosis Panel Today Z20.2 - Contact with and (suspected) exposure to infections with a predominantly sexual mode of transmission CT NG by PCR Today Z20.2 - Contact with and (suspected) exposure to infections with a predominantly sexual mode of transmission HIV Ab/Ag Today Z20.2 - Contact with and (suspected) exposure to infections with a predominantly sexual mode of transmission Syphilis Screen Today Z20.2 - Contact with and (suspected) exposure to infections with a predominantly sexual mode of transmission Hepatitis B Core Antibody Today Z20.2 - Contact with and (suspected) exposure to infections with a predominantly sexual mode of transmission Coding Level of Care Code Est Pt Prev Care 18-39y(24593) Diagnoses Encounter for well woman exam Z01.419 Potential exposure to STD Z20.2
[2023-08-13 10:09] VITALS: BP 108/64; BMI 33.1
== END 2023-08-13 10:38 | disposition home or self-care (01) ==
PROVIDERS: Visit Provider Advanced Practice Midwife
DX: Z01.419 Encounter for gynecological examination (general) (routine) without abnormal findings (principal); Z20.2 Contact with and (suspected) exposure to infections with a predominantly sexual mode of transmission
CPT/HCPCS: 99395

== ENCOUNTER 2023-08-13 10:34 | Outpatient (REF) | payer OTHER, SELFPAY | END 2023-08-13 10:35 | disposition home or self-care (01) | LOC: HO.LNP 10:34 | PROVIDERS: Visit Provider Advanced Practice Midwife | DX: Z13.89 Encounter for screening for other disorder (principal) ==

== ENCOUNTER 2023-08-19 15:16 | Outpatient (REF) | payer OTHER, SELFPAY ==
[2023-08-20 03:41] LABS: Syphilis Screen Nonreactive (Nonreactive)
[2023-08-20 04:00] LABS: HIV AB/AG Nonreactive (Nonreactive); HIV Num 1 0.06 S/CO (0.00-0.99); Hepatitis B Core Antibody Nonreactive (Nonreactive); ~HepC Num1 0.08 S/CO (0.00-0.79); ~Hepatitis C Antibody Nonreactive (Nonreactive)
== END 2023-08-19 15:17 | disposition home or self-care (01) ==
LOC: HO.LAB 15:16
PROVIDERS: PCP Hospitalist; Visit Provider Advanced Practice Midwife
DX: Z20.2 Contact with and (suspected) exposure to infections with a predominantly sexual mode of transmission (principal)
CPT/HCPCS: 36415; 86704; 86780; 86803; 87389

== ENCOUNTER 2024-02-27 19:56 | Emergency (ER) | payer MEDICAID, SELFPAY ==
--- NOTE | ~2024-02-27 | XR_ITS ---
EXAMINATION: XR ABDOMEN KUB CLINICAL INDICATION: Constipation COMPARISON: 03/20/2019 TECHNIQUE: AP view of the abdomen. FINDINGS: Again seen are numerous surgical clips in the left upper abdomen consistent with prior sleeve gastrectomy. Nondilated bowel gas pattern. No air-fluid levels or pneumoperitoneum identified. No appreciable pathologic calcifications. Small volume of stool in the colon. Lung bases are clear. No acute osseous findings. XR/XR KUB IMPRESSION: Small volume of stool in the colon. No evidence of obstruction or ileus.
--- NOTE | ~2024-02-27 | CT_ITS ---
EXAMINATION: CT ABDOMEN AND PELVIS WITH CONTRAST CLINICAL INFORMATION: Abdominal pain. COMPARISON: None available. TECHNIQUE: Multidetector volumetric images were obtained from the superior aspect of the liver through the pubic symphysis following administration 85 mL of Omnipaque 350 intravenous contrast. Sagittal and coronal reformatted images were obtained on the technologist's workstation. Oral contrast: No This CT examination was performed using dose optimization techniques as appropriate, variously including the following: *Automated exposure control *Adjustment of mA and/or kV according to patient size (this includes techniques or standardized protocols for targeted exams where dose is matched to indication/reason for exam; i.e. extremities or head) *Use of iterative reconstruction technique DLP: 639 mGy-cm FINDINGS: LUNG BASES: The visualized lung bases are unremarkable. LIVER, GALLBLADDER, AND BILIARY TREE: The liver is normal in size, shape, and attenuation. No focal hepatic lesion or biliary ductal dilatation is present. The gallbladder is unremarkable with no evidence of radiopaque gallstones, gallbladder wall thickening, or obvious pericholecystic inflammatory changes. PANCREAS: Unremarkable. SPLEEN: Unremarkable. ADRENAL GLANDS: Unremarkable. KIDNEYS AND URETERS: The kidneys are normal in size, shape, and attenuation. No hydronephrosis, hydroureter, or calculi seen. No perinephric stranding. BLADDER: Unremarkable. GASTROINTESTINAL TRACT: There has been a prior gastric sleeve procedure. The small and large bowel are unremarkable. The appendix is unremarkable. ABDOMINAL WALL: No significant hernia is appreciated. LYMPH NODES: Normal. VASCULAR: Unremarkable. PELVIC VISCERA: Unremarkable. OSSEOUS STRUCTURES: Unremarkable. CT/CT abdomen pelvis w IV con IMPRESSION: No significant abnormality. Fleischner guidelines were followed.
--- NOTE | 2024-02-27 20:10 | ED.GENADULT ---
HPI - General Adult General Chief complaint: General Medical Stated complaint: rectal bleeding Time Seen by Provider: 02/27/24 20:58 Source: patient Mode of arrival: ambulatory Limitations: no limitations History of Present Illness HPI narrative: Atrial fib with gastric sleeve surgery presents to ED for constipation, painful defecation, and blood in toilet paper when she wipes. Patient genitourinary symptoms. Patient states no fever or chills. Patient able to pass gas Related Data Previous Rx's ?Medication ?Instructions ?Recorded lactulose 20 gram oral packet 20 g PO DAILY constipation #4 ea 02/28/24 Allergies Allergy/AdvReac Type Severity Reaction Status Date / Time No Known Allergies Allergy Verified 02/27/24 20:14 [No Known Allergies*] Review of Systems Review of Systems: Constipation, painful defecation, blood Yes all other systems are reviewed and are negative [facility] Past Medical History Medical History (Updated 02/29/24 @ 00:00 by Lacho Lauren) Obesity Anemia Surgical History History of tonsillectomy (~01/2021) History of inguinal hernia repair History of bariatric surgery Family History Family History Father No problems noted. Mother Diabetes Hypertension Sister In good health Social History Social History Housing: Apartment Alcohol intake: never Patient Tobacco Use Status: Former Tobacco user Tobacco use type: Cigarette e-Cigarette/Vaping Use: Never Used Second Hand Smoke Exposure: No service: No Current occupational status: employed Gender identity: Female Physical Exam ED Vital Signs: Vital Signs - 24 hr 02/27/24 20:11 02/27/24 22:28 Temperature 98.3 F 98.4 F Pulse Rate 68 66 Respiratory Rate 18 20 Blood Pressure 113/71 110/70 Pulse Oximetry 99 100 Oxygen Delivery Method Room Air Room Air BMI result Body Mass Index 34.6 Const General: cooperative, healthy appearing, comfortable, no acute distress, well developed, alert, awake and Physically active Orientation/consciousness: oriented to person, oriented to place, oriented to time and patient oriented x3 HENMT Head: Yes normal to inspection, Yes No palpable skull fracture present, Yes normocephalic and Yes atraumatic Eyes General: appearance normal, both eyes and all related structures Neck Neck: Yes normal visual inspection, Yes full ROM, Yes no lymphadenopathy, Yes no meningeal signs, Yes trachea midline, Yes supple, No anterior neck swelling and No tender Chest Chest palpation & inspection: normal inspection of the chest and normal palpation of entire chest wall Resp Effort & Inspection: normal respiratory effort and able to speak in complete sentences Auscultation: clear to auscultation bilaterally Cardio Jugular venous distension: no JVD Heart sounds: S1 normal heart sound present and S2 normal heart sound present GI Inspection: Yes normal to inspection Palpation (GI): Soft to palpation, not firm, nontender, no guarding and not rigid Other: Rectal exam. Negative for black stool, melena, or bright red blood. negative for ANY EXTERNAL HEMMHROIDS. General: No CVA tenderness and Yes no CVA tenderness Back/Spine/Pelvis Back: no CVA tenderness, No CVA tenderness and No back tenderness Skin General skin exam: no rashes or lesions noted, elasticity normal and turgor normal Neuro General: oriented to person, oriented to place, oriented to time, patient oriented x3, gait normal, tone normal, moves all extremities, Normal light touch and pain sensation, no meningeal signs, no focal motor deficits, CN's II-XI intact bilaterally and normal sensation to monofilament Extrem General: Yes normal to inspection, Yes full ROM and Yes capillary refill normal Psych Appearance: grossly normal, well kempt and not disheveled Course Course Course Narrative: RME:?33 yo female here for eval of constipation and pain with passing gas and stool x 2 weeks, worsening today. reports seeing bright red blood on the toilet paper when wiping after a bowel movement. no blood in the toilet bowl. no thinners. has been passing small, hard stools. last normal stool was over 2 weeks ago. Reports calling her PCP however cannot get an appointment until july. labs, UA, KUB ordered. Full HPI, ROS and PE to be performed by the primary ED provider. Medications Administered Discontinued Medications Generic Name Dose Route Start Last Admin Trade Name Freq PRN Reason Stop Dose Admin Iohexol 85 ml 02/27/24 23:04 02/27/24 23:05 Iohexol 350 Mg/Ml 100 Ml Infus..Btl IV 02/27/24 23:05 85 ml ONCE ONE Administration Medical Decision Making Medical Decision Making [facility] Narrative: 33-year-old female presents to ED for constipation, painful defecation, and blood on tissue/stool. Patient states able to pass gas. Patient denies any nausea vomiting or genitourinary symptoms. Patient states no fever or chills. X-ray negative for obstruction or constipation but due to history of gastric surgery was sent for abdominal CT scan to rule out small-bowel obstruction. CT scan normal. Stool guaiac negative. 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 PATIENT EDUCATED ON POSSIBLE INTERNAL HEMMHROIDS. Differential Diagnosis Differential Diagnoses: The differential diagnosis associated with the presentation includes (Bowel obstruction, colitis, appendicitis, UTI,) Admission/Observation Consideration of admission/observation: Escalation of care including admission/observation considered Lab Data [facility] Lab Attestation statement: I reviewed the patient's lab results. 02/27/24 20:40 02/27/24 20:40 Labs: Lab Results 02/27/24 02/27/24 Range/Units 20:40 21:49 WBC 9.0 (4.8-10.8) X10*3/uL RBC 4.55 (4.20-5.50) X10*6/uL Hgb 13.8 (12.0-16.0) g/dl Hct 41.2 (37.0-47.0) % MCV 90.5 (80.0-98.0) fL MCH 30.3 (27.0-33.0) pg MCHC 33.5 (31.0-35.0) g/dl RDW 12.7 (11.0-16.0) % Plt Count 218 (160-400) X10*3/uL MPV 9.3 L (9.4-12.3) fL Immature Gran % (Auto) 0.2 (0.0-0.4) % Neut % (Auto) 61.4 (45-73) % Lymph % (Auto) 29.8 (20-40) % Harper % (Auto) 7.2 (2-11) % Eos % (Auto) 1.1 (0-4) % Baso % (Auto) 0.3 (0-2) % Lymph # (Auto) 2.7 (1.2-4.9) X10*3/uL Harper # (Auto) 0.7 (0.1-1.2) X10*3/uL Eos # (Auto) 0.1 (0.0-0.4) X10*3/uL Baso # (Auto) 0.0 (0.0-0.2) X10*3/uL Abs Immat Gran (auto) 0.02 (0.00-0.03) X10*3/uL Absolute Neuts (auto) 5.5 (2.0-8.3) x10*3/uL Absolute Nucleated RBC 0.000 (0.0-0.012) X10*3/uL Nucleated RBC % (auto) 0.0 (0.0-0.2) /100WBC Sodium 139 (135-145) mmol/L Potassium 4.0 (3.3-5.1) mmol/L Chloride 106 (96-108) mmol/L Carbon Dioxide 28 (22-29) mmol/L Anion Gap 9 L (12-20) BUN 17 H (9-16) mg/dL Creatinine 0.74 (0.5-1.4) mg/dL Estim Creat Clear Calc 110.9 Estimated GFR > 60 Random Glucose 68 (60-115) mg/dL Calcium 9.2 D (8.4-10.2) mg/dL Magnesium 2.0 (1.6-2.6) mg/dL Total Bilirubin 0.6 (0.0-1.0) mg/dL AST 17 (5-31) U/L ALT 12 (0-31) U/L Alkaline Phosphatase 45 (39-117) U/L Total Protein 7.0 (6.5-8.0) g/dL Albumin 3.9 (3.5-5.0) g/dL Beta HCG, Quant < 2 mIU/mL Urine Color Yellow Urine Appearance Clear Urine pH 6.5 (5.0-9.0) Ur Specific [place] 1.025 (1.005-1.025) Urine Protein Negative (Neg-Trace) mg/dL Urine Glucose (UA) Negative (Negative) mg/dL Urine Ketones Negative (Negative) mg/dL Urine Blood Negative (Negative) Urine Nitrite Negative (Negative) Ur Leukocyte Esterase Negative (Negative) Stool Occult Blood NEGATIVE (NEGATIVE) Independent Interpretation I performed an independent interpretation of an: Plain X-Ray and CT Scan Radiology Impression Discussion of test interpretation with radiology: I have reviewed the radiologist's reading. Independent Historian Clinical information obtained from an independent historian. 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 Return to the ED immediately for severe abdominal pain, nausea, vomiting, profuse rectal bleeding, worsening anal pain, any actual hemorrhoids, fever, chills, or any other concerning symptoms. Prescriptions: New lactulose 20 gram packet 20 g PO DAILY Qty: 4 0RF Referrals: [facility] [Provider Group] (Rectal bleeding constipation) Stand Alone Forms: Work/School Release Interventions: ED Discharge Assessment Last Done: 02/28/24 00:59 Discharge Date/Time: 02/28/24 01:00 Print Language: Armenian
[2024-02-27 20:11] VITALS: BP 113/71; PULSE 68; RESP 18; TEMP 36.8; O2SAT 99; BMI 34.6
[2024-02-27 20:45] LABS: MANUAL DIFF FLAG NO
[2024-02-27 20:46] LABS: Basophils Percent Auto 0.3 % (0-2); Eosinophils Absolute Auto 0.1 X10*3/uL (0.0-0.4); Eosinophils Percent Auto 1.1 % (0-4); Hematocrit 41.2 % (37.0-47.0); Hemoglobin 13.8 g/dl (12.0-16.0); Imm Gran Abs Auto 0.02 X10*3/uL (0.00-0.03); Imm Gran Pct Auto 0.2 % (0.0-0.4); Lymphocytes Absolute Auto 2.7 X10*3/uL (1.2-4.9); Lymphocytes Percent Auto 29.8 % (20-40); Mean Corpuscular HGB Conc 33.5 g/dl (31.0-35.0); Mean Corpuscular Hemoglobin 30.3 pg (27.0-33.0); Mean Corpuscular Volume 90.5 fL (80.0-98.0); Mean Platelet Volume 9.3 fL (9.4-12.3); Monocytes Absolute Auto 0.7 X10*3/uL (0.1-1.2); Monocytes Percent Auto 7.2 % (2-11); Neutrophils Absolute Auto 5.5 x10*3/uL (2.0-8.3); Neutrophils Percent Auto 61.4 % (45-73); Platelet Count 218 X10*3/uL (160-400); Red Blood Count 4.55 X10*6/uL (4.20-5.50); Red Cell Distribution Width 12.7 % (11.0-16.0)
[2024-02-27 20:59] LABS: Alanine Aminotransferase 12 U/L (0-31); Albumin Level 3.9 g/dL (3.5-5.0); Alkaline Phosphatase 45 U/L (39-117); Anion Gap 9 (12-20); Aspartate Amino Transferase 17 U/L (5-31); Bilirubin Total 0.6 mg/dL (0.0-1.0); Blood Urea Nitrogen 17 mg/dL (9-16); Calcium 9.2 mg/dL (8.4-10.2); Carbon Dioxide 28 mmol/L (22-29); Chloride 106 mmol/L (96-108); Creatinine Clr Calc Pharmacy 110.9; Estimated Glomerular Filt Rate > 60; Glucose Random 68 mg/dL (60-115); Sodium 139 mmol/L (135-145)
--- OUTSIDE RECORDS SUMMARY | 2024-02-27 21:23 | XMS_ITS | Continuity of Care Document ---
Author Organization [facility] ter Address [address] [place] [id number] Encounter [facility] Date(s): 02/07/21 - 02/08/[address] [address] Discharge Disposition: A-D/C Home Attending Physician: Yossi Basilio MD Admitting Physician: Yossi Basilio MD Referring Physician: Yossi Basilio MD Allergies, Adverse Reactions, Alerts No Known Medication Allergies Medications Acetaminophen (Pedi) 160 mg / 5 mL Liquid 800 mg, Suspension, By Mouth, Every 6 hours, PRN for Pain , Mild, Routine, 02/07/21 8:18:00 EDT Start Date: 02/07/21 Stop Date: 02/08/21 Status: Discontinued Ibuprofen Liquid 600 mg, Suspension, By Mouth, as needed every 6 hours for discomfort, 02/08/21 6:00:00 EDT Start Date: 02/08/21 Stop Date: 02/08/21 Status: Completed Vital Signs Most recent to oldest [Reference Range]: 1 2 3 Weight 79 kg (02/07/21 6:50 AM) Oxygen Saturation [94-100 %] 100 % (02/08/21 6:40 AM) 100 % (02/08/21 4:41 AM) 98 % (02/07/21 11:57 PM) Pulse Rate [55-90 bpm] 77 bpm (02/08/21 6:40 AM) 60 bpm (02/08/21 4:41 AM) 68 bpm (02/07/21 11:57 PM) Blood Pressure [90-138/55-84 mm Hg] 100/66mm Hg (02/08/21 6:40 AM) 99/53mm Hg (02/08/21 4:41 AM) 104/58mm Hg (02/07/21 11:57 PM) Respiratory Rate [16-30 br/min] 18 br/min (02/08/21 10:44 AM) 18 br/min (02/08/21 6:48 AM) 18 br/min (02/08/21 6:40 AM) Temperature [96.8-100.4 DegF] 97.7 DegF (02/08/21 6:40 AM) 97.8 DegF (02/08/21 4:41 AM) 97.6 DegF (02/07/21 11:57 PM) Liters per Minute 6 L/min (02/07/21 8:45 AM) 6 L/min (02/07/21 8:30 AM) 6 L/min (02/07/21 8:15 AM) Mode of Delivery (Oxygen) Room air (02/08/21 6:40 AM) Room air (02/08/21 4:41 AM) Room air (02/07/21 11:57 PM) Blood pressure sites Arm, right (02/08/21 6:40 AM) Arm, right (02/08/21 4:41 AM) Arm, right (02/07/21 11:57 PM) Temperature Route Axillary (02/08/21 6:40 AM) Axillary (02/08/21 4:41 AM) Axillary (02/07/21 11:57 PM) Dry Weight 79 kg (02/07/21 6:50 AM) Weight Obtained Via Standing scale (02/07/21 6:50 AM)
--- OUTSIDE RECORDS SUMMARY | 2024-02-27 21:23 | XMS_ITS | Continuity of Care Document ---
Author Organization [facility] Address [address] [place] [address]- Care Team Providers Care Visual Lead Name Role Phone Not on Staff, PCP Primary Care Physician Unavail able Encounter [facility] Date(s): 02/02/20 - 02/09/20 [facility] [address] [place] [address]- [facility] Attending Physician: Tamara CAGLE, Bartolo Johnson Allergies, Adverse Reactions, Alerts No Known Medication Allergies Medications naproxen 500 mg oral tablet 1 tablet = 500 mg, By Mouth, 2 times a day, for 10 days, # 20 tablet, 0 Refills, Acute 02/12/20 16:05:00 EDT, 02/02/20 16:05:00 EDT, Tablet, [id number] Start Date: 02/02/20 Stop Date: 02/12/20 Status: Ordered penicillin V potassium 500 mg oral tablet 1 tablet = 500 mg, By Mouth, Every 8 hours, for 10 days, # 30 tablet, 0 Refills, Acute 02/12/20 16:05:00 EDT, 02/02/20 16:05:00 EDT, [id number] Start Date: 02/02/20 Stop Date: 02/12/20 Status: Ordered Vital Signs Most recent to oldest [Reference Range]: 1 Oxygen Saturation [94-100 %] 100 % (02/02/20 3:54 PM) Pulse Rate [55-90 bpm] 71 bpm (02/02/20 3:54 PM) Blood Pressure [90-138/55-84 mm Hg] 99/5 7mm Hg (02/02/20 3:54 PM) Respiratory Rate [16-30 br/min] 18 br/mi n (02/02/20 3:54 PM) Temperature [96.8-100.4 DegF] 98.4 DegF (02/02/20 3:54 PM) Blood pressure sites Arm, left (02/02/20 3:54 PM) Temperature Route Oral (02/02/20 3:54 PM) Weight Obtained Via Standing scale (02/02/20 3:54 PM) Dry Weight Obtained Via Standing scale (02/02/20 3:54 PM)
--- OUTSIDE RECORDS SUMMARY | 2024-02-27 21:23 | XMS_ITS | Continuity of Care Document ---
Author Organization [facility] Address [address] [place] [address]- Care Team Providers Care Culinary Instructor Name Role Phone Not on Staff, PCP Primary Care Physician Unavail able Encounter [facility] Date(s): 02/02/20 - 02/12/20 [facility] [address] [place] [address]- [facility] Attending Physician: Tima Rosario Admitting Physician: Tima Rosairo Referring Physician: Tima Rosario Allergies, Adverse Reactions, Alerts No Known Medication Allergies
[2024-02-27 21:56] LABS: OBS Int Ctl Valid YES; OBS1 NEGATIVE (NEGATIVE)
[2024-02-27 21:57] LABS: Appearance Urine Clear; Color Urine Yellow; Glucose Urine UA Negative (Negative); Leukocyte Esterase Urine Negative (Negative); Nitrite Urine Negative (Negative); PH 6.5 (5.0-9.0); Specific Gravity - Urine 1.025 (1.005-1.025); Urine Blood Negative (Negative); Urine Ketones Negative (Negative); Urine Protein Negative (Neg-Trace)
[2024-02-27 22:25] LABS: HCG Quantitative < 2 mIU/mL
[2024-02-27 22:28] VITALS: BP 110/70; PULSE 66; RESP 20; TEMP 36.9; O2SAT 100
[2024-02-27] MEDS: iohexoL 350 MG/ML 100 ML INFUS..BTL 85 ML IV (23:05)
[2024-02-28] VITALS: BP 121/76; PULSE 61; RESP 16; TEMP 36.9; O2SAT 97
[2024-02-28 00:59] VITALS: BP 121/76; PULSE 64; RESP 16; TEMP 36.9; O2SAT 97
== END 2024-02-28 01:00 | disposition home or self-care (01) ==
PROVIDERS: Physician Assistant; Physician Assistant Medical; Emergency Provider Internal Medicine; PCP Hospitalist
DX: K92.1 Melena (principal); K59.00 Constipation, unspecified; R10.2 Pelvic and perineal pain; Z87.891 Personal history of nicotine dependence; Z79.899 Other long term (current) drug therapy
CPT/HCPCS: 36415; 74018; 74177; 80053; 81003; 82272; 83735; 84702; 85025; 99284; Q9967

== ENCOUNTER 2024-03-03 09:20 | Outpatient (AMB) | payer MEDICAID, SELFPAY ==
--- NOTE | 2024-03-03 09:42 | MHC.PC.OV ---
Vital Signs 03/03/24 09:50 Height 5 ft 2 in Weight 188 lb BMI 34.4 BP 106/80 Blood Pressure Location Rt brachial Position Sitting Respiration 16 Pulse 88 Pulse Source Pulse Oximeter Temp 98.3 F Temp Source Oral Pulse Oximetry (%) 99 Oxygen Delivery Method Room Air Intake Visit Reasons: Trans. from [facility] 02/27/24-Blood in Stool Intake Note: Emergency room follow up Nc Manager Required: No Is last menstrual period known: Yes Last menstrual period: 03/13/24 Allergies No Known Allergies [No Known Allergies*] Allergy (Verified 03/03/24 09:43) Medication List - Last Reconciled 03/03/24 by Karis Adkins PA-C No Known Home Meds Tobacco use date assessed: 08/14/21 Dental Screening Dental Screen Date: 03/03/24 Did you have a dental visit in the last 12 months?: Yes Did you have a dental problem in the last 6 months where you did not have access to dental care?: No Was dental information given to patient?: Patient has dentist HPI Trans. from [facility] 02/27/24-Blood in Stool HPI Details Patient is a 33-year-old female with a significant past medical history of anxiety, s/p gastric sleeve and obesity presenting today to establish care. She is transferring internally. She does have a few concerns today. GI: She recently went to the ER on 02/26 with concerns of blood in the stool, pain with defecation and constipation. She did have labs (wnl), neg guaiac stool test, a CT of the abdomen and pelvis which was overall normal. 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 She was also given lactulose and she states that was helpful for the constipation but she was still having discomfort with bowel movements. She states that she is still somewhat straining to have a bowel movement and it feels like she has an internal hemorrhoid. She states that they told her that she likely had this at the ER. She has not tried anything for this. When she wipes she sometimes has a small amount of blood on the toilet paper but not in the stool. No family history of colon/rectal cancer. Denies any abdominal pain, weight loss, nausea or vomiting. Psych: Her anxiety has been a bit worse recently. She states that she thinks it is related to her current lifestyle. She is working 2nd shift and she has not been able to exercise as much as she was in the past. She is also frustrated because she is continuing to gain weight. She had a gastric sleeve and tells me that it is hard for her to see the weight continued to increase. She has not changed her diet but her exercise habits have changed. She denies any history of depression. No SI/HI. She does endorse fatigue but does not think it is related to depression. General: She states that she has been tired for the last 6 months or so. Attributes this to possible job changes. Does not think that she has sleep apnea. She states that she had a tonsillectomy in that has made her sleep very easily. No snoring at night. She sleeps for about 8 hours or so but feels like she needs to take a nap during the day. She does not think that this is related to how she is eating. She lacks motivation to exercise. No chest pain or shortness a breath. She states that she just feels tired and overall achy and all of her joints. She is not on any medication. No urinary changes. No joint swelling, erythema, numbness or tingling. There was no trauma. She does think that this could be related to her weight and possibly somewhat related to winter after a long discussion about this. No recent virus prior to this starting. No known tick bites. No travel. No rashes. No fever, chills or night sweats. No lymphadenopathy that she has noted. No fam hx of autoimmune disease. 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 Mother Diabetes Hypertension Sister In good health Social History Housing: Apartment Alcohol intake: never Patient Tobacco Use Status: Former Tobacco user Tobacco use type: Cigarette e-Cigarette/Vaping Use: Currently Using Second Hand Smoke Exposure: No service: No Current occupational status: employed Current occupation: [employer] Current occupational exposures/hazards: No Gender identity: Female Cognitive needs: No Hearing needs: No Vision needs: No Female Reproductive History Menstrual Age of Menarche: 12 Date of last menstrual period: 03/13/24 Questionnaire PHQ-9 Over the last 2 weeks, how often have you been bothered by any of the following problems? 1. Little interest or pleasure in doing things: more than half the days 2. Feeling down, depressed, or hopeless: more than half the days 3. Trouble falling or staying asleep, or sleeping too much: more than half the days 4. Feeling tired or having little energy: more than half the days 5. Poor appetite or overeating: several days 6. Feeling bad about yourself - or that you are a failure or have let yourself or your family down: not at all 7. Trouble concentrating on things, such as reading the newspaper or watching television: not at all 8. Moving or speaking so slowly that other people could have noticed. Or the opposite - being so fidgety or restless that you have been moving around a lot more than usual: not at all 9. Thoughts that you would be better off or of hurting yourself in some way: not at all Total score: 9 Depression Screening Interpretation: Positive Depression Screening Follow-up: Follow-up Visit Requested and Declines treatment Depression Screening Done: Yes 17648 - PHQ-9 Billing: Yes Source: Developed by Drs. Dean Pacheco, Leda Sutton, Brad Blackwell and colleagues, with an educational holly from [employer]. Thrive Questionnaire Date Thrive assessed: 08/14/21 I am a: Patient What is your living situation today?: I have a place to live, but I am worried about losing it in the future Within the past 12 months, did the food you bought not last and you didn't have the money to get more?: Never true Within the past 12 months, did you worry whether your food would run out before you got money to buy more?: Sometimes True Do you have trouble paying for medicines?: Yes Do you have trouble getting transportation to medical appointments?: No Do you have trouble paying your heating and electricity bill?: No Do you have trouble taking care of your child, family member or friend?: No Do you have trouble with day-to-day activities such as bathing, preparing meals, shopping, managing finances, etc.?: No Are you currently unemployed and looking for a job?: No Are you interested in more education?: Yes Please select the resources that you would like help with: Housing/Prison Currently or been in a relationship where the following occur: no concerns reported THRIVE Score: 2 PILAR-7 AMB Questionnaire PILAR-7 Feeling nervous, anxious, or on edge: 2 = More than half the days Not being able to stop or control worryin = More than half the days Worrying too much about different things: 2 = More than half the days Trouble relaxin = More than half the days Being so restless that it is hard to sit still: 2 = More than half the days Becoming easily annoyed or irritable: 2 = More than half the days Feeling afraid as if something awful might happen: 2 = More than half the days Total PILAR-7 score (0-4 normal; 5-9 mild; 10-14 moderate; 15-21 severe): 14 Source: Developed by Drs. Dean Pacheco, Leda Sutton, Brad Blackwell and colleagues, with an educational holly from [employer]. PILAR-7 Assessment Billing PILAR-7 Assessment Tool: PILAR-7 Assessment 40974 Physical exam (Primary Care) Vital Signs: Last Vital Signs Temp 98.3 F 03/03/24 09:50 Pulse 88 03/03/24 09:50 Resp 16 03/03/24 09:50 BP 106/80 03/03/24 09:50 Pulse Ox 99 03/03/24 09:50 Oxygen Delivery Method Room Air 03/03/24 09:50 BMI result Body Mass Index 34.4 Tobacco/Smoking Status: Tobacco use Status Tobacco use date assessed 08/14/21 03/03/24 09:47 Patient Tobacco Use Status Former Tobacco user 03/03/24 09:47 Tobacco use type Cigarette 03/03/24 09:47 e-Cigarette/Vaping Use Currently Using 03/03/24 09:47 Depression Screening Interpretation: Positive Depression Screening Follow-up: Follow-up Visit Requested and Declines treatment Thrive Assessment: Date of Thrive Assessment Date Thrive assessed 08/14/21 03/03/24 09:47 Currently or been in a relationship where the following occur: no concerns reported Const Orientation/consciousness: patient oriented x3 HENMT Ears: hearing grossly normal bilaterally Neck Thyroid: Thyroid normal Lymphatic: no lymphadenopathy noted Resp Auscultation: clear to auscultation bilaterally Cardio Rate: regular rate Rhythm: regular rhythm Heart sounds: S1 normal heart sound present and S2 normal heart sound present GI Inspection: Yes normal to inspection Palpation (GI): Soft to palpation and Other GI palpation findings present (nontender, no cva tenderness) Auscultation: normoactive bowel sounds Rectal Exam - Female: deferred Skin General skin exam: no rashes or lesions noted Neuro General: patient oriented x3, gait normal and no focal motor deficits Motor exam (neuro): 5/5 motor strength present throughout Sensory Exam: double simultaneous stimulation for sensation normal Extrem General: Yes normal to inspection and Yes full ROM Psych Speech and movement: Normal speech and movement present Affect: normal affect Attitude: cooperative Thought process: Normal thought process present Thought content: Normal thought content present Insight: Good insight present (Psych) Results Reviewed Results Reviewed: INDINGS: LUNG BASES: The visualized lung bases are unremarkable. LIVER, GALLBLADDER, AND BILIARY TREE: The liver is normal in size, shape, and attenuation. No focal hepatic lesion or biliary ductal dilatation is present. The gallbladder is unremarkable with no evidence of radiopaque gallstones, gallbladder wall thickening, or obvious pericholecystic inflammatory changes. PANCREAS: Unremarkable. SPLEEN: Unremarkable. ADRENAL GLANDS: Unremarkable. KIDNEYS AND URETERS: The kidneys are normal in size, shape, and attenuation. No hydronephrosis, hydroureter, or calculi seen. No perinephric stranding. BLADDER: Unremarkable. GASTROINTESTINAL TRACT: There has been a prior gastric sleeve procedure. The small and large bowel are unremarkable. The appendix is unremarkable. ABDOMINAL WALL: No significant hernia is appreciated. LYMPH NODES: Normal. VASCULAR: Unremarkable. PELVIC VISCERA: Unremarkable. OSSEOUS STRUCTURES: Unremarkable. CT/CT abdomen pelvis w IV con IMPRESSION: No significant abnormality. Fleischner guidelines were followed. Assessment and Plan Assessment & Plan (1) Fatigue: Code(s): R53.83 - Other fatigue Qualifiers: Fatigue type: chronic, unspecified Qualified Code(s): R53.82 - Chronic fatigue, unspecified Plan: We did discuss possibility of depression given her PHQ-9 however she does not feel that this is necessarily related or that she truly has depression. Labs ordered today. We spent extensive time discussing lifestyle including diet changes, avoiding processed foods, good sleep hygiene and exercise. We will follow up pending test results. (2) Constipation: Code(s): K59.00 - Constipation, unspecified Qualifiers: Constipation type: unspecified constipation type Qualified Code(s): K59.00 - Constipation, unspecified Plan: referral GI. (3) Rectal pain: Code(s): K62.89 - Other specified diseases of anus and rectum Plan: will try annusol suppository. labs ordered. ref to GI (4) Polyarthralgia: Code(s): M25.50 - Pain in unspecified joint Plan: labs ordered today. f/u 1 month to be reassessed (5) Anxiety: Code(s): F41.9 - Anxiety disorder, unspecified Plan: declines medicine or referral to . will follow up (6) Obesity: Code(s): E66.9 - Obesity, unspecified Qualifiers: Obesity type: due to excess calories Obesity classification: adult class 1 (BMI 30 - 34.9) Serious obesity comorbidity presence: without serious comorbidity Body mass index: BMI 34.0-34.9 Qualified Code(s): E66.09 - Other obesity due to excess calories; Z68.34 - Body mass index [BMI] 34.0-34.9, adult Plan: Will start Mounjaro. Discussed risks and benefits and adverse effects of the medication including nausea, vomiting, constipation. We did discuss the increased risk of thyroid cancer. We will have her follow up in 1 month. She does believe that her weight is the cause of most of her anxiety and fatigue. Labs ordered today as well. Lipids ordered. We will follow up pending test results. Patient understands and agrees with this plan. Orders: Orders C Reactive Protein Today K59.00 - Constipation, unspecified, K62.89 - Other specified diseases of anus and rectum, M25.50 - Pain in unspecified joint, R53.82 - Chronic fatigue, unspecified, Z13.220 - Encounter for screening for lipoid disorders Lipid Panel Today K59.00 - Constipation, unspecified, K62.89 - Other specified diseases of anus and rectum, M25.50 - Pain in unspecified joint, R53.82 - Chronic fatigue, unspecified, Z13.220 - Encounter for screening for lipoid disorders Vitamin B12 Today K59.00 - Constipation, unspecified, K62.89 - Other specified diseases of anus and rectum, M25.50 - Pain in unspecified joint, R53.82 - Chronic fatigue, unspecified, Z13.220 - Encounter for screening for lipoid disorders Folate Today K59.00 - Constipation, unspecified, K62.89 - Other specified diseases of anus and rectum, M25.50 - Pain in unspecified joint, R53.82 - Chronic fatigue, unspecified, Z13.220 - Encounter for screening for lipoid disorders Vitamin D 25-OH (D2 and D3) Today K59.00 - Constipation, unspecified, K62.89 - Other specified diseases of anus and rectum, M25.50 - Pain in unspecified joint, R53.82 - Chronic fatigue, unspecified, Z13.220 - Encounter for screening for lipoid disorders Erythrocyte Sedimentation Rate Today K59.00 - Constipation, unspecified, K62.89 - Other specified diseases of anus and rectum, M25.50 - Pain in unspecified joint, R53.82 - Chronic fatigue, unspecified, Z13.220 - Encounter for screening for lipoid disorders Lyme IgG/IgM w/reflex to WB Today K59.00 - Constipation, unspecified, K62.89 - Other specified diseases of anus and rectum, M25.50 - Pain in unspecified joint, R53.82 - Chronic fatigue, unspecified, Z13.220 - Encounter for screening for lipoid disorders TSH reflex Free T4 Today K59.00 - Constipation, unspecified, K62.89 - Other specified diseases of anus and rectum, M25.50 - Pain in unspecified joint, R53.82 - Chronic fatigue, unspecified, Z13.220 - Encounter for screening for lipoid disorders IRON PROFILE Today K59.00 - Constipation, unspecified, R53.82 - Chronic fatigue, unspecified Uric Acid Today K59.00 - Constipation, unspecified, K62.89 - Other specified diseases of anus and rectum, M25.50 - Pain in unspecified joint, R53.82 - Chronic fatigue, unspecified, Z13.220 - Encounter for screening for lipoid disorders Comprehensive Met. Panel Today K59.00 - Constipation, unspecified, K62.89 - Other specified diseases of anus and rectum, M25.50 - Pain in unspecified joint, R53.82 - Chronic fatigue, unspecified, Z13.220 - Encounter for screening for lipoid disorders Complete Blood Count Auto Diff Today K59.00 - Constipation, unspecified, K62.89 - Other specified diseases of anus and rectum, M25.50 - Pain in unspecified joint, R53.82 - Chronic fatigue, unspecified, Z13.220 - Encounter for screening for lipoid disorders ALEXANDRA Reflex Titer and Pattern Today K59.00 - Constipation, unspecified, K62.89 - Other specified diseases of anus and rectum, M25.50 - Pain in unspecified joint, R53.82 - Chronic fatigue, unspecified, Z13.220 - Encounter for screening for lipoid disorders Referrals Gastroenterology Referral K59.00 - Constipation, unspecified, K62.89 - Other specified diseases of anus and rectum Medications: New tirzepatide (Mounjaro) 2.5 mg (0.5 mL) subcut QWEEK 4 weeks 2 mL 0RF docusate sodium (Colace) 100 mg PO BID 30 days 60 caps 1RF hydrocortisone acetate (Anusol-HC) 25 mg KS BID 6 days 12 ea 2RF Coding Level of Care Code Est Pt Level 4 (96094) Diagnoses Chronic fatigue R53.82 Fatigue type: chronic, unspecified Constipation, unspecified constipation type K59.00 Constipation type: unspecified constipation type Rectal pain K62.89 Polyarthralgia M25.50 Anxiety F41.9 Class 1 obesity due to excess calories without serious comorbidity with body mass index (BMI) of 34.0 to 34.9 in adult E66.09; Z68.34 Obesity type: due to excess calories Obesity classification: adult class 1 (BMI 30 - 34.9) Serious obesity comorbidity presence: without serious comorbidity Body mass index: BMI 34.0-34.9 Additional Codes PILAR-7 Assessment Billing - PILAR-7 Assessment Tool: PILAR-7 Assessment [id number] ([id number])
[2024-03-03 09:50] VITALS: BP 106/80; PULSE 88; RESP 16; TEMP 36.8; O2SAT 99; BMI 34.4
== END 2024-03-03 10:34 | disposition home or self-care (01) ==
PROVIDERS: PCP Hospitalist; Visit Provider Physician Assistant
DX: R53.82 Chronic fatigue, unspecified (principal); K59.00 Constipation, unspecified; K62.89 Other specified diseases of anus and rectum; F41.9 Anxiety disorder, unspecified; M25.50 Pain in unspecified joint; E66.09 Other obesity due to excess calories; Z68.34 Body mass index [BMI] 34.0-34.9, adult
CPT/HCPCS: 96127; 99214

== ENCOUNTER 2025-06-23 14:53 | Outpatient (AMB) | payer BC, SELFPAY ==
--- NOTE | 2025-06-23 14:55 | MHC.OFFVIS ---
Vital Signs 06/23/25 15:09 Height 5 ft 2 in Weight 194 lb 0.108 oz BMI 35.5 BP 107/66 Blood Pressure Location Lt brachial Position Sitting Pulse 75 Intake Visit Reasons: Lower G.I. Bleed Intake Note: New patient in office today for lower GI bleed. CC: She states that she has issues having BMs - she noticed that she was having blood but she has been taking soft gel pills to go to the bathroom. She states that she is still bleeding at times but not as bad as when she went to the ED. Allergies No Known Allergies (No Known Allergies*) Allergy (Verified 06/23/25 15:13) HPI HPI Lower G.I. Bleed: Details: 33-year-old female here for initial evaluation of constipation. She is [place] Karis Adkins [place] [facility] [place]. PMX Obesity Anxiety Polyarthralgias Constipation Anxiety * SURGICAL HISTORY Tonsillectomy Inguinal hernia repair Bariatric surgery-sleeve * ALLERGIES NKDA * MEDITECH LABS: None since February of 2024 TODAY'S VISIT Onset 1 year ago with [facility] after her bariatric surgery. She takes benefiber in the am daily, and uses colace but will go as much as a week w/o a BM. Yet when she does have a BM it is soft but very small in volume. She eats a lot of brown rice and chicken. 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 BUT she sweats a lot. She aslo notes decreased urination. She sees RB on the TT only, the only time it filled the bowl was when she visited the ER a year ago, but she does see blood on the toilet tissue nearly every bowel movement. NO abd pain except occasional cramping before a BM that resolved with BM. No FHX of CRC or polyps known, no similar sx but her mother has hemorrhoids. NO card or respiratory problems. There are no prior problems with anesthesia or sedation. NO ID problems. Given her history of bariatric surgery it is likely she is in taking a lower volume of fiber, and it sounds like she is not keeping up with perspiration losses of fluids while she is working. This is evidenced by both the uneven bowel movements and the decreased urinary output. However, we will get a colonoscopy to make sure there is no more concerning pathology given the rectal bleeding. There is evidence in terms of the hemorrhoidal sac of hemorrhoids with no bleeding noted at this time. We will get the small follow-up follow-through study to see if the bariatric surgery has not anyway interrupted peristalsis along with a thyroid study to see if this is a confounding factor. ROV 8 week. [facility] Medical History (Updated 06/23/25 @ 15:23 by GENO Kowalski) Rectal pain Polyarthralgia Enlarged tonsils Obesity Anemia Surgical History (Updated 03/03/24 @ 10:06 by Karis Adkins PA-C) S/P tonsillectomy History of tonsillectomy (~01/2021) History of inguinal hernia repair History of bariatric surgery Family History Father No problems noted. Mother Diabetes Hypertension Sister In good health Social History Housing: Apartment Alcohol intake: never Patient Tobacco Use Status: Former Tobacco user Tobacco use type: Cigarette e-Cigarette/Vaping Use: Currently Using Second Hand Smoke Exposure: No service: No Current occupational status: employed Current occupation: [employer] Current occupational exposures/hazards: No Gender identity: Female Cognitive needs: No Hearing needs: No Vision needs: No Female Reproductive History Menstrual Age of Menarche: 12 Review of Systems Const Denies fatigue, Denies fever(s), Denies night sweats, Denies poor appetite and Denies weight loss ENT Reports Normal hearing present, Denies dental pain, Denies dysphagia, Denies hearing loss, Denies mouth pain, Denies odynophagia, Denies throat swelling, Denies tongue swelling and Reports other (Dentition adequate) Card Reports no additional complaints Resp Reports no additional complaints GI Details: Denies abdominal pain, Denies melena, Denies bloating, Reports hematochezia, Reports constipation, Denies GI cramping, Denies dysphagia, Denies excessive flatus, Denies early satiety, Denies heartburn, Denies diarrhea, Denies nausea, Denies odynophagia, Denies vomiting and Denies hematemesis Details: Decreased urinary output Skin/Breast Denies pruritus, Denies lesions, Denies rash and Denies jaundice Neuro Reports Normal hearing present and Denies Abnormal speech present Endo Denies fatigue Aller/Immun Denies throat swelling and Denies tongue swelling Physical Exam Const General: cooperative, no acute distress, well developed and well groomed Nutritional Appearance: well nourished and obese Orientation/consciousness: oriented to person, oriented to place and oriented to time Limitations: No language barrier HEENT Head: Yes normocephalic and Yes atraumatic Eyes General: appearance normal, both eyes and all related structures Pupils: Equal, round and reactive pupils present Neck Neck: Yes normal visual inspection and Yes no lymphadenopathy Thyroid: Thyroid normal Resp Effort & Inspection: normal respiratory effort and able to speak in complete sentences Auscultation: clear to auscultation bilaterally Cardio Rate: regular rate Rhythm: regular rhythm Heart sounds: Normal, physiologic split S2 sound present Peripheral pulses: radial pulses present and posterior tibial pulses present GI Inspection: No distended, No Abdominal panniculus present and Yes obesity Palpation (GI): Soft to palpation, nontender, no guarding, not rigid and No hepatosplenomegaly present Percussion: Yes normal to percussion Auscultation: normal bowel sounds Rectal Exam - Female: visual inspection normal, normal sphincter tone, No Anal fissure(s) present and other (Noninflamed hemorrhoidal sac at 02:00 scant brown school stool on glove) Skin General skin exam: no rashes or lesions noted, turgor normal, skin not dry, no jaundice, No spider nevi and no striae Rashes: no rashes Nails: normal Neuro General: oriented to person, oriented to place and oriented to time Cranial nerves: Yes Equal, round and reactive pupils present and Yes Normal hearing present Speech: No Abnormal speech present Extrem General: Yes normal to inspection, No clubbing, No cyanosis and No edema Psych Appearance: grossly normal and well kempt Mental Status: mental status grossly normal Speech and movement: Normal speech and movement present Affect: normal affect Attitude: cooperative Thought process: Normal thought process present and not confabulating Thought content: Normal thought content present Insight: Fair insight present (Psych) Judgement: Fair judgement present (Psych) Assessment & Plan Assessment & Plan (1) Constipation: Code(s): K59.00 - Constipation, unspecified Category: Medical (2) Rectal bleeding: Code(s): K62.5 - Hemorrhage of anus and rectum Category: Medical Plan Onset 1 year ago with [facility] after her bariatric surgery. She takes benefiber in the am daily, and uses colace but will go as much as a week w/o a BM. Yet when she does have a BM it is soft but very small in volume. She eats a lot of brown rice and chicken. 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 BUT she sweats a lot. She aslo notes decreased urination. She sees RB on the TT only, the only time it filled the bowl was when she visited the ER a year ago, but she does see blood on the toilet tissue nearly every bowel movement. NO abd pain except occasional cramping before a BM that resolved with BM. No FHX of CRC or polyps known, no similar sx but her mother has hemorrhoids. NO card or respiratory problems. There are no prior problems with anesthesia or sedation. NO ID problems. Given her history of bariatric surgery it is likely she is in taking a lower volume of fiber, and it sounds like she is not keeping up with perspiration losses of fluids while she is working. This is evidenced by both the uneven bowel movements and the decreased urinary output. However, we will get a colonoscopy to make sure there is no more concerning pathology given the rectal bleeding. There is evidence in terms of the hemorrhoidal sac of hemorrhoids with no bleeding noted at this time. We will get the small follow-up follow-through study to see if the bariatric surgery has not anyway interrupted peristalsis along with a thyroid study to see if this is a confounding factor. ROV 8 week. Orders: Orders Comprehensive Met. Panel Today K62.5 - Hemorrhage of anus and rectum FL barium swallow w SBFT Today K62.5 - Hemorrhage of anus and rectum Complete Blood Count Auto Diff Today K62.5 - Hemorrhage of anus and rectum TSH reflex Free T4 Today K62.5 - Hemorrhage of anus and rectum Colonoscopy - GI Use Only Today K62.5 - Hemorrhage of anus and rectum Coding Level of Care Code New Pt Level 3 (26375) Diagnoses Constipation K59.00 Rectal bleeding K62.5
[2025-06-23 15:09] VITALS: BP 107/66; PULSE 75; BMI 35.5
--- OUTSIDE RECORDS SUMMARY | 2025-06-23 15:37 | XMS_ITS | Patient Health Record ---
Author Organization [facility] Address [address] [place] [id number] Care Team Providers Care [employer] Good[employer] Maker Name Role Phone DONOVAN WOODARD [phone] Results Component Value Reference Range Notes HBsAg Screen-[id number] (Not yet reviewed by provider) Interpretation: Performing Lab:[facility], [address], [address], [place], Phone - [phone], Director - [facility] Notes/Report: Clinical Information:SRC: VAGINAL HBsAg Screen Negative Negative Hepatitis B Surf Ab Quant-[id number] (Not yet reviewed by provider) Interpretation: Performing Lab:[facility], [address], [address], [place], Phone - [phone], Director - [facility] Notes/Report: Clinical Information:SRC: VAGINAL Hepatitis B Surf Ab Quant <3.5 Immunity>10 mIU /mL Status of Immunity Anti-HBs Level Inconsistent with Immunity 0.0 - 10.0 Consistent with Immunity >10.0 T pallidum Screening [place] -[id number] (Not yet reviewed by provider) Interpretation: Performing Lab:[facility], [address], [address], [place], Phone - [phone], Director - [facility] Notes/Report: Clinical Information:SRC: VAGINAL T pallidum Antibodies Non Reactive Non Reactive HIV Ab/p24 Ag with Reflex-[id number] (Not yet reviewed by provider) Interpretation: Performing Lab:[facility], [address], [address], [place], Phone - [phone], Director - [facility] Notes/Report: Clinical Information:SRC: VAGINAL HIV Ab/p24 Ag Screen Non Reactive Non Reactive HIV-1/HIV-2 antibodies and HIV-1 p24 antigen were NOT detected. There is no laboratory evidence of HIV infection. HIV Negative HCV Antibody RFX to Quant PC [id number] (Not yet reviewed by provider) Interpretation: Performing Lab:[facility], [address], [address], [place], Phone - [phone], Director - [facility] Notes/Report: Clinical Information:SRC: VAGINAL Clinical Information:SRC: VAGINAL HCV Ab Non Reactive Non Reactive Interpretation: Not infected with HCV unless early or acute infection is suspected (which may be delayed in an immunocompromised individual), or other evidence exists to indicate HCV infection. Test, Urine Reviewed date:06/22/2025 03:40:49 PM Interpretation:negative Performing Lab: Notes/Report: negative Test, Urine neg Lot # [id number] Exp. Date 02/08/26 Reason For Referral No Information Social History Sex Assigned At : Social History Observation Description Sex Assigned At Female Vital Signs Blood pressure diastolic 78 mm Hg 06/22/2025 Height 5'2 in 06/22/2025 Blood pressure systolic 134 mm Hg 06/22/2025 Weight 197.0 lbs 06/22/2025 BMI 36.03 kg/m2 06/22/2025 Encounters Encounter Location Date Provider Diagnosis [facility] [address] [place] [address] [address] [place], [place] [id number] 06/22/2025 DONOVAN WOODARD Encounter for screen ing for infections with a predominantly sexual mode of transmission Z11.3 ; Counseling, unspecified Z71.9 ; Other problems related to lifestyle Z72.89 ; Encounter for test, result negative Z32.02 ; Encounter for screening for other viral diseases Z11.59 and Encounter for screening for human immunodeficiency virus [HIV] Z11.4 Assessments Encounter Date Diagnosis (ICD Code) Assessment Notes Treatment Notes Treatment Clinical Notes Section Notes 06/22/2025 Encounter for screening for infections with a predominantly sexual mode of transmission (ICD-10 - Z11.3) Reviewed routine screening, safe sex and consistent barrier protection. Aware of window period for testing and testing options. Discussed symptoms that would warrant further evaluation and follow-up care Spent ___ minutes doing the following: Chart Prep Obtaining/review ing history Performing medically necessary exam Counseling/Coord ination of Care Documenting the visit Educating the patient Ordering medication/test/ procedures Communication of test results New Patient: [id number] 15 Minutes 06/22/2025 Counseling, unspecified (ICD-10 - Z71.9) Answered questions around fertility and discussed ovulation/tacos tility awareness. Clt will start to track cycle and consider purchasing ovulation sticks to confirm fertile window. Can discuss further with FINISH PRODUCTION MANAGER at upcoming appt Spent ___ minutes doing the following: Chart Prep Obtaining/review ing history Performing medically necessary exam Counseling/Coord ination of Care Documenting the visit Educating the patient Ordering medication/test/ procedures Communication of test results New Patient: 15 Minutes 06/22/2025 Other problems related to lifestyle (ICD-10 - Z72.89) Spent ___ minutes doing the following: Chart Prep Obtaining/review ing history Performing medically necessary exam Counseling/Coord ination of Care Documenting the visit Educating the patient Ordering medication/test/ procedures Communication of test results New Patient: 15 Minutes 06/22/2025 Encounter for test, result negative (ICD-10 - Z32.02) Spent ___ minutes doing the following: Chart Prep Obtaining/review ing history Performing medically necessary exam Counseling/Coord ination of Care Documenting the visit Educating the patient Ordering medication/test/ procedures Communication of test results New Patient: [id number] 15 Minutes 06/22/2025 Encounter for screening for other viral diseases (ICD-10 - Z11.59) Spent ___ minutes doing the following: Chart Prep Obtaining/review ing history Performing medically necessary exam Counseling/Coord ination of Care Documenting the visit Educating the patient Ordering medication/test/ procedures Communication of test results New Patient: [id number] 15 Minutes 06/22/2025 Encounter for screening for human immunodeficiency virus [HIV] (ICD-10 - Z11.4) Spent ___ minutes doing the following: Chart Prep Obtaining/review ing history Performing medically necessary exam Counseling/Coord ination of Care Documenting the visit Educating the patient Ordering medication/test/ procedures Communication of test results New Patient: [id number] 15 Minutes Plan Of Treatment Pending Test Test Name Order Date HBsAg Screen-[id number] 06/22/2025 Hepatitis B Surf Ab Quant-[id number] 025 T pallidum Screening [place]-[id number] 05/26 HIV Ab/p24 Ag with Reflex-[id number] 025 HCV Antibody RFX to Quant PCR-[id number] Ct, Ng, Trich vag by [place]-[id number] 06/22/20 25 Ct/GC [place], Pharyngeal-[id number] 06/22/2025 Next Appt Details Provider Name:DONOVAN WOODARD , 08/23/2025 03:45:00 PM, [address] [place] [address], [address], [place], [place], [phone], Insurance Providers Payer Name Payer Address Payer Phone Subscriber Number Group Number Insured Name Patient Relationship to Insured Coverage Start Date Coverage End Date [employer] [address] [place] [address] [id number] Kasey Guzman Self - patient is the insured Medical (General) History Medical History History ICD Code Vaginal infection
--- OUTSIDE RECORDS SUMMARY | 2025-06-23 15:38 | XMS_ITS | Patient Health Record ---
Author Organization [facility] Address [address] [place] [address] Care Team Providers Care Entry Level Drafter Name Role Phone MYRIAM BOSTON Primary Care Provider [phone] Allergies No Known Allergies Results Component Value Reference Range Notes Zinc, Plasma or Serum-855805 Reviewed date:02/18/2025 05:23:27 PM Interpretation: Performing Lab:[facility] [address], Phone - [phone], Director - Lydia Notes/Report: Test(s) 845469-Topivv, Serum or Plasma; 090505-Talj, Plasma or Serum was developed and its performance characteristics determined by [facility]. It has not been cleared or approved by the Food and Drug Administration. Zinc, Plasma or Serum 59 44-115 ug/dL Detect ion Limit = 5 Copper, Serum or Plasma-0015 86 Reviewed date:02/18/2025 05:23:30 PM Interpretation: Performing Lab:[facility] [address], Phone - [phone], Director - Lydia Notes/Report: Test(s) 754223-Kirfxj, Serum or Plasma; 885101-Doau, Plasma or Serum was developed and its performance characteristics determined by [facility]. It has not been cleared or approved by the Food and Drug Administration. Copper, Serum or Plasma 120 80-158 ug/dL Dete ction Limit = 5 Vitamin B12 and Folate-60166 0 Reviewed date:02/18/2025 05:23:32 PM Interpretation: Performing Lab:[facility] [address], Phone - [phone], Director - Lydia Notes/Report: Test(s) 315579-Uzrpak, Serum or Plasma; 721763-Gyov, Plasma or Serum was developed and its performance characteristics determined by [facility]. It has not been cleared or approved by the Food and Drug Administration. Vitamin B12 025 446-1187 pg/mL Folate (Folic Acid), Serum 8.1 >3.0 ng/mL A serum folate concentration of less than 3.1 ng/mL is considered to represent clinical deficiency. 25-Hydroxyvitamin D LCMS D2+ D3-776386 Reviewed date:02/18/2025 05:23:35 PM Interpretation: Performing Lab:[facility] [address], Phone - [phone], Director - [facility] Notes/Report: Test(s) 529318-Hscdyl, Serum or Plasma; 546589-Cndz, Plasma or Serum was developed and its performance characteristics determined by [facility]. It has not been cleared or approved by the Food and Drug Administration. 25-Hydroxy, Vitamin D 17 Reference Range: All Ages: Target levels 30 - 100 25-Hydroxy, Vitamin D-2 <1.0 This test was developed and its performance characteristics determined by [facility]. It has not been cleared or approved by the Food and Drug Administration. 25-Hydroxy, Vitamin D-3 17 This test was developed and its performance characteristics determined by [facility]. It has not been cleared or approved by the Food and Drug Administration. Ferritin-441417 Reviewed date:02/18/2025 05:23:37 PM Interpretation: Performing Lab:[facility] [address], Phone - [phone], [place] [facility] [place] Notes/Report: Test(s) 102981-Byxadb, Serum or Plasma; 848739-Rcfa, Plasma or Serum was developed and its performance characteristics determined by [facility]. It has not been cleared or approved by the Food and Drug Administration. Ferritin 80 15-150 ng/mL Iron and TIBC-280059 Reviewed date:02/18/2025 05:23:40 PM Interpretation: Performing Lab:[facility] [address], Phone - [phone], [place] [facility] [place] [facility] Notes/Report: Test(s) 531629-Azpbmy, Serum or Plasma; 137876-Skay, Plasma or Serum was developed and its performance characteristics determined by [facility]. It has not been cleared or approved by the Food and Drug Administration. Iron Bind.Cap.(TIBC) 334 250-450 ug/dL UIBC 226 131-425 ug/dL Iron 108 27-159 ug/dL Iron Saturation 32 15-55 % Magnesium-983458 Reviewed date:02/18/2025 05:23:44 PM Interpretation: Performing Lab:[facility], [address] [place] [address], Phone - [phone], Director - [facility] Notes/Report: Test(s) 211375-Ylport, Serum or Plasma; 858932-Xvzv, Plasma or Serum was developed and its performance characteristics determined by [facility]. It has not been cleared or approved by the Food and Drug Administration. Magnesium 2.1 1.6-2.3 mg/dL CBC With Differential/Platel et-245567 Reviewed date:02/18/2025 05:23:47 PM Interpretation: Performing Lab:[facility], [address] [place] [address], [place], Phone - [phone], Director - [facility] Notes/Report: Test(s) 353684-Bmmfcf, Serum or Plasma; 132474-Fugq, Plasma or Serum was developed and its performance characteristics determined by [facility]. It has not been cleared or approved by the Food and Drug Administration. WBC 11.4 3.4-10.8 x10E3/uL RBC 4.54 3.77-5.28 x10E6/uL Hemoglobin 13.9 11.1-15.9 g/dL Hematocrit 41.6 34.0-46.6 % MCV 92 79-97 fL MCH 30.6 26.6-33.0 pg MCHC 33.4 31.5-35.7 g/dL RDW 12.7 11.7-15.4 % Platelets 229 150-450 x10E3/uL Neutrophils 66 Not Estab. % Lymphs 26 Not Estab. % Monocytes 7 Not Estab. % Eos 1 Not Estab. % Basos 0 Not Estab. % Neutrophils (Absolute) 7.5 1.4-7.0 x10E3/uL Lymphs (Absolute) 2.9 0.7-3.1 x10E3/uL Monocytes(Absolute) 0.8 0.1-0.9 x10E3/uL Eos (Absolute) 0.1 0.0-0.4 x10E3/uL Baso (Absolute) 0.0 0.0-0.2 x10E3/uL Immature Granulocytes 0 Not Estab. % Immature Grans (Abs) 0.0 0.0-0.1 x10E3/uL TSH-[id number] Reviewed date:02/18/2025 05:23:51 PM Interpretation: Performing Lab:[facility] [address], Phone - [phone], Director - [facility] Notes/Report: Test(s) 501596-Kfcrfo, Serum or Plasma; 369473-Gztz, Plasma or Serum was developed and its performance characteristics determined by [facility]. It has not been cleared or approved by the Food and Drug Administration. TSH 4.320 0.450-4.500 uIU/mL Lipid Panel-111748 Reviewed date:02/18/2025 05:23:54 PM Interpretation: Performing Lab:[facility] [address], Phone - [phone], Director - [facility] Notes/Report: Test(s) 569333-Pknifz, Serum or Plasma; 744647-Juey, Plasma or Serum was developed and its performance characteristics determined by [facility]. It has not been cleared or approved by the Food and Drug Administration. Cholesterol, Total 186 100-199 mg/dL Triglycerides 72 0-149 mg/dL HDL Cholesterol 82 >39 mg/dL VLDL Cholesterol Sunil 13 5-40 mg/dL LDL Chol Calc (NIH) 91 0-99 mg/dL Comp. Metabolic Panel (14)-3 85087 Reviewed date:02/18/2025 05:24:01 PM Interpretation: Performing Lab:[facility] [address], Phone - [phone], Director - [facility] Notes/Report: Test(s) 609917-Inbfkl, Serum or Plasma; 278250-Lxda, Plasma or Serum was developed and its performance characteristics determined by [facility]. It has not been cleared or approved by the Food and Drug Administration. Glucose 77 70-99 mg/dL BUN 14 6-20 mg/dL Creatinine 0.85 0.57-1.00 mg/dL eGFR 93 >59 mL/min/1.73 BUN/Creatinine Ratio 16 9-23 Sodium 137 134-144 mmol/L Potassium 4.0 3.5-5.2 mmol/L Chloride 100 96-106 mmol/L Carbon Dioxide, Total 24 20-29 mmol/L Calcium 9.2 8.7-10.2 mg/dL Protein, Total 7.0 6.0-8.5 g/dL Albumin 4.5 3.9-4.9 g/dL Globulin, Total 2.5 1.5-4.5 g/dL Bilirubin, Total 0.4 0.0-1.2 mg/dL Alkaline Phosphatase 53 44-121 IU/L AST (SGOT) 21 0-40 IU/L ALT (SGPT) 15 0-32 IU/L Reason For Referral Reason [place] [facility] [place] evaluate and treat Diagnosis 1 Gastrointestinal hem orrhage, unspecified (K92.2) Referral Organization [facility] Referring Provider First Name MYRIAM Referring Provider Last Name DARVIN Referring Provider Speciality Internal M edicine Referred Provider Specialty Gastroentero logy General Notes Please call the [facility] to schedule the appointment, Destiney Johnson 02/22/2025 04:34:02 PM > Referral Priority Routine Medications Medication SIG (Take, Route, Frequency, Duration) Notes Start Date End Date Status Phentermine HCl 15 MG 1 capsule Orally O nce a day; Duration: 28 days 02/16/2025 Active Clobetasol Propionate 0.05 % 1 application Externally Twice a day; Duration: 14 days 02/16/2025 Active Problems Problem Type SNOMED Code ICD Code Onset Dates Problem Status W/U Status Risk Notes Problem Anemia (472890853) Anemia, unspecified (D64.9) Active confirmed Problem Obesity due to excess calories (648814355) Other obesity due to excess calories (E66.09) Active confirmed Vital Signs Heart Rate 85 /min 02/16/2025 Temperature 97.4 degrees Fahrenheit 02/16/2025 Oximetry 100 % 02/16/2025 Blood pressure diastolic 70 mm Hg 02/16/2025 Height 5'2'' in 02/16/2025 Blood pressure systolic 108 mm Hg 02/16/2025 Weight 197.7 lbs 02/16/2025 BMI 36.16 kg/m2 02/16/2025 Encounters Encounter Location Date Provider Diagnosis [facility] [address] [place] [address] 01/19/2025 MYRIAM BOSTON Other obesity due to excess calories E66.09 ; Dietary counseling and surveillance Z71.3 ; Anemia, unspecified D64.9 ; Bariatric surgery status Z98.84 ; Tobacco use Z72.0 and Tobacco abuse counseling Z71.6 [facility] [address] [place] [address] 02/16/2025 MYRIAM BOSTON Other obesity due to excess calories E66.09 ; Anemia, unspecified D64.9 and Rash and other nonspecific skin eruption R21 Assessments Encounter Date Diagnosis (ICD Code) Assessment Notes Treatment Notes Treatment Clinical Notes Section Notes 01/19/2025 Other obesity due to excess calories (ICD-10 - E66.09) Ms. Gutiérrez is 34 years old lady with history of gastric sleeve surgery in 2019 at [facility] and at the time of surgery she was 250 pounds and she dropped 170 pounds and then she gradually started gaining weight when she was calorie weight and she is interested in medical weight management. plan is as follows Obesity. Different modalities of treatment discussed with the patient. She was given names of the medication and she can check with the pharmacy and insurance which medications are covered. She can benefit from GLP-1 considering history of bariatric procedure. Anemia. Blood work ordered. Screening blood work ordered. Nicotine dependence. She smokes pipe and encouraged abstinence. She was also advised to decrease alcohol intake. 01/19/2025 Dietary counseling and surveillance (ICD-10 - Z71.3) Ms. Gutiérrez is 34 years old lady with history of gastric sleeve surgery in 2019 at [facility] and at the time of surgery she was 250 pounds and she dropped 170 pounds and then she gradually started gaining weight when she was calorie weight and she is interested in medical weight management. plan is as follows Obesity. Different modalities of treatment discussed with the patient. She was given names of the medication and she can check with the pharmacy and insurance which medications are covered. She can benefit from GLP-1 considering history of bariatric procedure. Anemia. Blood work ordered. Screening blood work ordered. Nicotine dependence. She smokes pipe and encouraged abstinence. She was also advised to decrease alcohol intake. 02/16/2025 Other obesity due to excess calories (ICD-10 - E66.09) Kasey is 34 years old lady is here today for medical weight management. She also complains of mild raised rash on the chest. Plan is as follows. Dermatitis/eczem a. Clobetasol 0.05 cream sent. Dietary recommendations. Food recall was done today and patient advised to be on low calorie, low carbohydrate diet. Restrict calories to less than 1500 kcal in 24 hours. Low glycemic index foods and encouraged. Meal replacements were recommended. Advised to use ymjx-tzb-yacndta multivitamins and vitamin D. Advised to use calorie counter and adhere to portion control. Monthly goal is to lose 4-6 pounds Pharmacotherapy. She started on phentermine 15 mg daily Side effects explained to the patient. Goal is to lose 3-5% of body weight in 3 months. Exercise. Patient encouraged to increase frequency, intensity and duration of exercise. Encouraged to burn at least 250-500 kcal in one session. Also encouraged to do weight training Assess. Different risk factors discussed with the patient and addressed Advise. Patient was given clear And specific advise that she will comply with Low-calorie diet and try not to exceed more than 1300 kcal in 24 hours. Agree. Mutually agreed to work together to achieve appropriate goals Assist. Motivational interviewing done. Arrange. Follow-up appointment arranged. Counseling. 25 minutes spent Face to face with the patient more than 50% of time was spent counseling. Blood work reviewed and questions answered 02/16/2025 Rash and other nonspecific skin eruption (ICD-10 - R21) Kasey is 34 years old lady is here today for medical weight management. She also complains of mild raised rash on the chest. Plan is as follows. Dermatitis/eczem a. Clobetasol 0.05 cream sent. Dietary recommendations. Food recall was done today and patient advised to be on low calorie, low carbohydrate diet. Restrict calories to less than 1500 kcal in 24 hours. Low glycemic index foods and encouraged. Meal replacements were recommended. Advised to use heew-rrm-xbtzoot multivitamins and vitamin D. Advised to use calorie counter and adhere to portion control. Monthly goal is to lose 4-6 pounds Pharmacotherapy. She started on phentermine 15 mg daily Side effects explained to the patient. Goal is to lose 3-5% of body weight in 3 months. Exercise. Patient encouraged to increase frequency, intensity and duration of exercise. Encouraged to burn at least 250-500 kcal in one session. Also encouraged to do weight training Assess. Different risk factors discussed with the patient and addressed Advise. Patient was given clear And specific advise that she will comply with Low-calorie diet and try not to exceed more than 1300 kcal in 24 hours. Agree. Mutually agreed to work together to achieve appropriate goals Assist. Motivational interviewing done. Arrange. Follow-up appointment arranged. Counseling. 25 minutes spent Face to face with the patient more than 50% of time was spent counseling. Blood work reviewed and questions answered 02/16/2025 Anemia, unspecified (ICD-10 - D64.9) Kasey is 34 years old lady is here today for medical weight management. She also complains of mild raised rash on the chest. Plan is as follows. Dermatitis/eczem a. Clobetasol 0.05 cream sent. Dietary recommendations. Food recall was done today and patient advised to be on low calorie, low carbohydrate diet. Restrict calories to less than 1500 kcal in 24 hours. Low glycemic index foods and encouraged. Meal replacements were recommended. Advised to use qbrq-hod-fzwwnta multivitamins and vitamin D. Advised to use calorie counter and adhere to portion control. Monthly goal is to lose 4-6 pounds Pharmacotherapy. She started on phentermine 15 mg daily Side effects explained to the patient. Goal is to lose 3-5% of body weight in 3 months. Exercise. Patient encouraged to increase frequency, intensity and duration of exercise. Encouraged to burn at least 250-500 kcal in one session. Also encouraged to do weight training Assess. Different risk factors discussed with the patient and addressed Advise. Patient was given clear And specific advise that she will comply with Low-calorie diet and try not to exceed more than 1300 kcal in 24 hours. Agree. Mutually agreed to work together to achieve appropriate goals Assist. Motivational interviewing done. Arrange. Follow-up appointment arranged. Counseling. 25 minutes spent Face to face with the patient more than 50% of time was spent counseling. Blood work reviewed and questions answered 01/19/2025 Anemia, unspecified (ICD-10 - D64.9) Ms. Gutiérrez is 34 years old lady with history of gastric sleeve surgery in 2019 at [facility] and at the time of surgery she was 250 pounds and she dropped 170 pounds and then she gradually started gaining weight when she was calorie weight and she is interested in medical weight management. plan is as follows Obesity. Different modalities of treatment discussed with the patient. She was given names of the medication and she can check with the pharmacy and insurance which medications are covered. She can benefit from GLP-1 considering history of bariatric procedure. Anemia. Blood work ordered. Screening blood work ordered. Nicotine dependence. She smokes pipe and encouraged abstinence. She was also advised to decrease alcohol intake. 01/19/2025 Bariatric surgery status (ICD-10 - Z98.84) Ms. Gutiérrez is 34 years old lady with history of gastric sleeve surgery in 2019 at [facility] and at the time of surgery she was 250 pounds and she dropped 170 pounds and then she gradually started gaining weight when she was calorie weight and she is interested in medical weight management. plan is as follows Obesity. Different modalities of treatment discussed with the patient. She was given names of the medication and she can check with the pharmacy and insurance which medications are covered. She can benefit from GLP-1 considering history of bariatric procedure. Anemia. Blood work ordered. Screening blood work ordered. Nicotine dependence. She smokes pipe and encouraged abstinence. She was also advised to decrease alcohol intake. 01/19/2025 Tobacco use (ICD-10 - Z72.0) Ms. Gutiérrez is 34 years old lady with history of gastric sleeve surgery in 2019 at [facility] and at the time of surgery she was 250 pounds and she dropped 170 pounds and then she gradually started gaining weight when she was calorie weight and she is interested in medical weight management. plan is as follows Obesity. Different modalities of treatment discussed with the patient. She was given names of the medication and she can check with the pharmacy and insurance which medications are covered. She can benefit from GLP-1 considering history of bariatric procedure. Anemia. Blood work ordered. Screening blood work ordered. Nicotine dependence. She smokes pipe and encouraged abstinence. She was also advised to decrease alcohol intake. 01/19/2025 Tobacco abuse counseling (ICD-10 - Z71.6) Ms. Gutiérrez is 34 years old lady with history of gastric sleeve surgery in 2019 at [facility] and at the time of surgery she was 250 pounds and she dropped 170 pounds and then she gradually started gaining weight when she was calorie weight and she is interested in medical weight management. plan is as follows Obesity. Different modalities of treatment discussed with the patient. She was given names of the medication and she can check with the pharmacy and insurance which medications are covered. She can benefit from GLP-1 considering history of bariatric procedure. Anemia. Blood work ordered. Screening blood work ordered. Nicotine dependence. She smokes pipe and encouraged abstinence. She was also advised to decrease alcohol intake. Plan Of Treatment No Information Insurance Providers Payer Name Payer Address Payer Phone Subscriber Number Group Number Insured Name Patient Relationship to Insured Coverage Start Date Coverage End Date [facility] [address] [place] [address] [phone] [id number] Kasey Mike Self - patient is the insured Medical (General) History Medical History History ICD Code anemia
== END 2025-06-23 15:48 | disposition home or self-care (01) ==
LOC: HO.HGI 14:53
PROVIDERS: PCP Physician Assistant; Visit Provider Nurse Practitioner
DX: K59.00 Constipation, unspecified (principal); K62.5 Hemorrhage of anus and rectum
CPT/HCPCS: 99203

== ENCOUNTER 2025-06-23 14:53 | Outpatient (REF) | payer BC, SELFPAY ==
[2025-06-23 16:17] LABS: MANUAL DIFF FLAG NO
[2025-06-23 17:01] LABS: Hematocrit 39.8 % (37.0-47.0); Hemoglobin 13.0 g/dl (12.0-16.0); Imm Gran Abs Auto 0.04 X10*3/uL (0.00-0.03); Imm Gran Pct Auto 0.4 % (0.0-0.4); Lymphocytes Absolute Auto 3.4 X10*3/uL (1.2-4.9); Mean Corpuscular HGB Conc 32.7 g/dl (31.0-35.0); Mean Corpuscular Hemoglobin 30.1 pg (27.0-33.0); Mean Corpuscular Volume 92.1 fL (80.0-98.0); NRBC Abs Auto 0.000 X10*3/uL (0.0-0.012); NRBC Pct Auto 0.0 /100WBC (0.0-0.2); Platelet Count 245 X10*3/uL (160-400); Red Blood Count 4.32 X10*6/uL (4.20-5.50); White Blood Count 10.8 X10*3/uL (4.8-10.8)
[2025-06-23 17:30] LABS: Alanine Aminotransferase 15 U/L (0-31); Albumin Level 4.5 g/dL (3.5-5.0); Alkaline Phosphatase 45 U/L (39-117); Anion Gap 13 (12-20); Aspartate Amino Transferase 21 U/L (5-31); Blood Urea Nitrogen 18 mg/dL (9-16); Calcium 9.1 mg/dL (8.4-10.2); Carbon Dioxide 27 mmol/L (22-29); Chloride 106 mmol/L (96-108); Estimated Glomerular Filt Rate > 60; Potassium 4.0 mmol/L (3.3-5.1); Sodium 142 mmol/L (135-145); Total Protein 7.2 g/dL (6.5-8.0)
== END 2025-06-23 14:54 | disposition home or self-care (01) ==
LOC: HO.LAB 14:53
PROVIDERS: PCP Physician Assistant; Visit Provider Nurse Practitioner
DX: K62.5 Hemorrhage of anus and rectum (principal); K59.00 Constipation, unspecified; R34 Anuria and oliguria; Z98.84 Bariatric surgery status
CPT/HCPCS: 36415; 80053; 84443; 85025